=== PATIENT | female | born 1990 | race Caucasian/White ===

== ENCOUNTER 2023-04-23 18:24 | Outpatient (CLI) | payer OTHER, SELFPAY | END 2023-04-23 18:25 | disposition home or self-care (01) | PROVIDERS: Visit Provider Registered Nurse | DX: Z34.91 Encounter for supervision of normal pregnancy, unspecified, first trimester (principal); Z3A.11 11 weeks gestation of pregnancy | CPT/HCPCS: 82040; 82306; 82310; 82607; 83540; 83970; 84155; 84443; 84446; 84590; 84597; 86704; 86706; 86762; 86787; 86803; 86850; 86900; 86901; 87086; 87340 ==

== ENCOUNTER 2023-06-10 19:00 | Outpatient (CLI) | payer OTHER, MEDICAID, SELFPAY ==
[2023-06-10 19:11] VITALS: BP 113/67; PULSE 81
[2023-06-10 19:13] VITALS: TEMP 37.2; O2SAT 99
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
== END 2023-06-10 20:12 | disposition home or self-care (01) ==
LOC: OB OUT 19:00 → OB 19:00
PROVIDERS: Visit Provider Obstetrics & Gynecology
DX: O26.852 Spotting complicating pregnancy, second trimester (principal); Z3A.18 18 weeks gestation of pregnancy
CPT/HCPCS: 76815; G0463

== ENCOUNTER 2023-07-15 14:49 | Outpatient (CLI) | payer OTHER, MEDICAID, SELFPAY | END 2023-07-15 14:50 | disposition home or self-care (01) | PROVIDERS: Visit Provider Obstetrics & Gynecology | DX: O09.292 Supervision of pregnancy with other poor reproductive or obstetric history, second trimester (principal); Z3A.27 27 weeks gestation of pregnancy; Z98.84 Bariatric surgery status | CPT/HCPCS: 82306; 82310; 82607; 82728; 82746; 83540; 84425 ==

== ENCOUNTER 2023-07-30 17:33 | Outpatient (CLI) | payer OTHER, MEDICAID, SELFPAY | END 2023-07-30 17:34 | disposition home or self-care (01) | LOC: NFLDREF 17:34 | PROVIDERS: Visit Provider Physician Assistant | DX: O09.892 Supervision of other high risk pregnancies, second trimester (principal); Z3A.25 25 weeks gestation of pregnancy | CPT/HCPCS: 82947 ==

== ENCOUNTER 2023-08-22 16:02 | Outpatient (CLI) | payer OTHER, BC, SELFPAY ==
--- NOTE | 2023-08-22 16:00 | US_ITS ---
Patient: CORINNE MONAHAN Facility:?[facility] Patient ID:?[id number] Site Patient ID:?[id number]. Site :?1990 Study:?US-OB Pelvis OB F/U GROWTH-08/22/2023 4:44:52 PM Ordering Physician:?MIRI CEBALLOS CNP Final Report: INDICATION: Check growth TECHNIQUE: Limited transabdominal two-dimensional ramirez-scale ultrasound examination. COMPARISON: None FINDINGS: There is a living fetus in breech lie with gestational age of 29 weeks by LMP and 28 weeks 4 days by today`s measurements EDC based on LMP is 11/07/2023. BPD: 7.1 cm, 28 weeks 3 days Head circumference: 27.0 cm, 29 weeks 3 days Abdominal circumference: 24.3 cm, 28 weeks 4 days Femur length: 5.2 cm, 27 weeks 5 days The weight is estimated at 1209 grams, the 17th percentile. The heart rate is measured at 144 beats per minute and the rhythm appears regular. The amniotic fluid volume is within normal limits with single deepest pocket of 6.5 cm. The placenta is anterior and superior to the cervical os. There is no evidence of previa. IMPRESSION: 1. Living fetus in breech lie with gestational age of 29 weeks by LMP at 28 weeks 4 days by today`s measurements. EDC based on LMP is 11/07/2023. 2. weight estimated at 1209 grams, the 17th percentile. Dictated by Jose Luis Esteves MD @ 08/23/2023 2:13:25 PM Signed by:?Jose Luis Esteves MD @08/23/2023 2:13:25 PM (Electronic Signature)
== END 2023-08-22 16:03 | disposition home or self-care (01) ==
PROVIDERS: Visit Provider Registered Nurse
DX: O43.113 Circumvallate placenta, third trimester (principal); Z3A.29 29 weeks gestation of pregnancy
CPT/HCPCS: 76816

== ENCOUNTER 2023-08-27 18:34 | Outpatient (CLI) | payer OTHER, BC, SELFPAY | END 2023-08-27 18:35 | disposition home or self-care (01) | LOC: NFLDREF 18:35 | PROVIDERS: Visit Provider Registered Nurse | DX: R30.0 Dysuria (principal) | CPT/HCPCS: 87086; 87186 ==

== ENCOUNTER 2023-09-07 22:16 | Emergency (ER) | payer OTHER, BC, SELFPAY ==
[2023-09-07 22:25] VITALS: BP 112/73; PULSE 99; RESP 16; TEMP 36.3; O2SAT 98; BMI 27.5
--- NOTE | 2023-09-07 22:30 | PC.NURSE ---
Pt is a G6L4 with EDC of 11/07/23.
--- NOTE | 2023-09-07 22:32 | PC.NURSE ---
Pt also mentioned she thinks she is getting a yeast infection as this is her second round of antibiotics for UTI.
--- NOTE | 2023-09-07 22:37 | ED_ITS ---
HPI - General Adult General Time Seen by Provider: 22:37 Date Seen: 09/07/23 Chief complaint: Lower Extremity Swelling Stated complaint: swelling in L Leg Time Seen by Provider: 09/07/23 22:36 Source: patient and RN notes reviewed Mode of arrival: ambulatory Limitations: no limitations History of Present Illness HPI narrative: This 33-year-old female whom is 31 2/7 weeks is coming in with complaint of left leg numbness and tingling in increased swelling tonight. She is noted bilateral lower extremity through this . Tonight she took a nap, when she woke up, she went up the steps go to the bathroom. She felt like her left leg was weaker, noted numbness and tingling below the knee into the toes. She looked down at the leg and thought it was more swollen. There is no pain in the calf, no recent travel. She was on Keflex for UTI recently. The baby is active, no contractions but is experiencing [place]. No vaginal discharge or leaking. She has had no fevers or chills. She noted on the way in that her left hand started to feel numb and tingly, she admits she was gripping the seatbelt and was feeling anxious. This is her 7 , has 4 other children reportedly. Related Data Home Medications Medication Instructions Recorded Confirmed albuterol sulfate 90 mcg/actuation 1 puff inhalation Q1H PRN 04/23/23 08/27/23 aerosol inhaler mupirocin 2 % topical ointment 1 applic topical DAILY PRN 04/23/23 08/27/23 cetirizine 10 mg tablet 10 mg PO QDAY PRN 05/21/23 08/27/23 ipratropium bromide 42 mcg (0.06 2 spray intranasal TID 05/21/23 08/27/23 %) nasal spray bupropion HCl 150 mg 24 hr tablet, 150 mg PO QAM 07/30/23 08/27/23 extended release dextroamphetamine-amphetamine 10 1 tab PO DAILY 07/30/23 08/27/23 mg tablet metoclopramide HCl 10 mg tablet 10 mg PO Q6H PRN 07/30/23 08/27/23 (Reglan) gabapentin 100 mg capsule 100 mg PO QDAY 08/27/23 08/27/23 hydroxyzine HCl 10 mg tablet 50 mg PO 08/27/23 08/27/23 hydroxyzine HCl 50 mg tablet 50 mg PO TID PRN 08/27/23 08/27/23 Previous Rx's Medication Instructions Recorded duloxetine 60 mg capsule,delayed 60 mg PO QDAY #30 caps 05/21/23 release blood sugar diagnostic (OneTouch #100 ea 05/23/23 Ultra Test strips) lancets 30 gauge (OneTouch #100 ea 05/23/23 UltraSoft 2 Lancet) Test Strips #100 ea 07/15/23 lancets #100 ea 07/15/23 Blood Glucose Meter #1 ea 07/17/23 ondansetron 4 mg disintegrating 4 mg PO Q8H PRN nausea and 07/30/23 tablet vomiting #30 tabs famotidine 20 mg tablet 20 mg PO BID #60 tabs 08/13/23 famotidine 40 mg tablet 40 mg PO BID #60 tabs 08/27/23 nitrofurantoin 100 mg PO BID #10 caps 08/27/23 monohydrate/macrocrystals 100 mg capsule (Macrobid) cephalexin 500 mg tablet 500 mg PO BID #14 tabs 08/29/23 Allergies Allergy/AdvReac Type Severity Reaction Status Date / Time NSAIDS (Non-Steroidal Allergy Severe Abdominal Verified 08/27/23 18:18 Anti-Inflamma Pain aspirin AdvReac Mild Gastrointestinal Verified 08/27/23 18:18 Upset Cephalosporins AdvReac Mild Gastrointestinal Verified 08/27/23 18:18 Upset penicillin V AdvReac Mild Gastrointestinal Verified 08/27/23 18:18 Upset Review of Systems Status of ROS: Reports: 6 or more systems reviewed and unremarkable except as noted in History and below [facility] Medical History Vaginal delivery ?O80 - Encounter for full-term uncomplicated delivery (ICD-10) Precipitous delivery ?O62.3 - Precipitate labor (ICD-10) Alcohol use ?Z78.9 - Other specified health status (ICD-10) Retinal detachment ?H33.20 - Serous retinal detachment, unspecified eye (ICD-10) Hypokalemia ?E87.6 - Hypokalemia (ICD-10) labor without delivery ?O60.00 - labor without delivery, unspecified trimester (ICD-10) Family history of congenital heart defect ?Z82.79 - Family history of other congenital malformations, deformations and chromosomal abnormalities (ICD-10) Obesity ?E66.9 - Obesity, unspecified (ICD-10) History of abnormal cervical Pap smear ?Z87.42 - Personal history of other diseases of the female genital tract (ICD-10) History of gastric ulcer ?Z87.11 - Personal history of peptic ulcer disease (ICD-10) Surgical History H/O hernia repair ?Z98.890 - Other specified postprocedural states (ICD-10) ?Z87.19 - Personal history of other diseases of the digestive system (ICD-10) History of gastric bypass ?Z98.84 - Bariatric surgery status (ICD-10) History of loop electrical excision procedure (LEEP) ?Z98.890 - Other specified postprocedural states (ICD-10) History of cholecystectomy (2013) ?Z90.49 - Acquired absence of other specified parts of digestive tract (ICD- 10) History of retinal detachment ?Z86.69 - Personal history of other diseases of the nervous system and sense organs (ICD-10) Family History Maternal Grandfather Coagulation disorder Son Heart disease Other Diabetes High blood pressure High cholesterol Social History What is your current living situation?: I presently have a place to live Problems where you live: no known problems In the past 12 months, utilities in danger of being shut off: no In past 12 months, lack of transportation kept you from medical appts, meetings, work, or getting things needed for daily living: no In the past 12 mos, have been you worried that your food would run out before you had money to buy more?: never true In the past 12 mos, the food you bought just didn't last and you didn't have mo brittney to buy more?: never true Smoking Status: Current every day smoker What tobacco products do you use: cigarettes Do you use any of these nicotine containing products: None Second hand tobacco smoke exposure: No How often do you have a drink containing alcohol: never How often do you have six or more drinks on one occasion: Never AUDIT-C Alcohol total score: 0 Non-prescribed substance use: denies use How often does anyone, including family, friends and others, physically hurt you : never How often does anyone, including family, friends and others, insult or talk down to you: never How often does anyone, including family, friends and others, threaten you with harm: never How often does anyone, including family, friends and others, scream or curse at you: never Little interest or pleasure in doing things: more than half the days Feeling down, depressed, or hopeless: more than half the days service: No Exam Const: Vital Signs, click to edit/add: Vital Signs - 24 hr 09/07/23 22:25 09/07/23 23:34 Temperature 97.3 F L 98.0 F Pulse Rate [Pulse Oximeter] 99 70 Respiratory Rate 16 16 Blood Pressure [Le ft Upper Arm] 112/73 114/72 Pulse Oximetry 98 98 Oxygen Delivery Me thod Room Air Room Air Patient is alert, interactive, no apparent distress. I did see patient ambulating back into her exam room, gait was normal. Uterus is gravid. Pupils equal round reactive, sclera clear, symmetrical facial function. Speech is norm al. Neck supple, no adenopathy or masses. Lungs are clear, good air entry, CV regular rate and rhythm no murmur. She has some bilateral lower extremity edema, no erythema, no calf tenderness. She seems to have normal light touch sensation currently right now. Initially when asked her to lift her leg off the bed she seemed to have a bit of a difficult time but when prompted and encouraged her strength is 5/5 and symmetric in the lower extremities. Normal light touch say soto in hands, normal motor function in upper extremities. Documenting provider has reviewed patient's vital signs: yes Course Course ED Course: Will obtain a venous ultrasound given patient is in certainly is at risk. It is possible that this was just positional was sleeping. Will briefly talk to neuro just to make sure that I am proceeding appropriately for this patient. Feel it is likely positional changes from sleeping and potentially anxiety with involvement of the hand. She ambulated in here completely fine tonight. Reevaluation(s) Time of Reevaluation #1: 00:03 Reevaluation #1: Patient informed that the preliminary report per cnc technician is negative for DVT. Will allow her to discharge. Consultations Consultation #1: Did speak with Neurology Dr. Rice. He felt her leg may have been more of a positional neuropathy from sleeping. He did state he really could not explain the hand but patient did admit that she was gripping the seatbelt on the way in, was anxious and nervous. We will do is have her monitor this. He does not feel any neuro imaging is necessary. Will proceed with her venous ultrasound for her left lower extremity. Time: 22:54 Vital Signs Vital signs: Initial Vital Signs Temperature 97.3 F L 09/07/23 22:25 Temperature Source Temporal Artery Scan 09/07/23 22:25 Pulse Rate 99 09/07/23 22:25 Pulse Rhythm Regular 09/07/23 22:25 Respiratory Rate 16 09/07/23 22:25 Blood Pressure 112/73 09/07/23 22:25 Blood Pressure Mean 86 09/07/23 22:25 Blood Pressure Position Sitting 09/07/23 22:25 Pulse Oximetry 98 09/07/23 22:25 Oxygen Delivery Method Room Air 09/07/23 22:25 Vital Signs Temperature 97.3 F L 09/07/23 22:25 Pulse Rate 99 09/07/23 22:25 Respiratory Rate 16 09/07/23 22:25 Blood Pressure 112/73 09/07/23 22:25 Pulse Oximetry 98 09/07/23 22:25 Oxygen Delivery Method Room Air 09/07/23 22:25 Temperature 98.0 F 09/07/23 23:34 Pulse Rate 70 09/07/23 23:34 Respiratory Rate 16 09/07/23 23:34 Blood Pressure 114/72 09/07/23 23:34 Pulse Oximetry 98 09/07/23 23:34 Oxygen Delivery Method Room Air 09/07/23 23:34 Discharge Plan Discharge Clinical Impression: Left leg swelling Qualifiers: Weeks of gestation: 31 weeks Qualified Code(s): Z3A.31 - 31 weeks gestation of Patient Disposition: Home, Self-Care Condition: Stable Instructions: at 31 to 34 Weeks (ED) Additional Instructions: Please follow-up in OB clinic this next week for recheck. Try to elevate your legs heart level or above it as much as possible, certainly when you are resting. This can help decrease some of the swelling. Talk to your hydro station operator about compression stockings such as Russell hose. Activity Level: Activity as Tolerated Prescriptions: No Action albuterol sulfate 90 mcg/actuation HFA aerosol inhaler 1 puff inhalation Q1H PRN Hold Instructions: Patient states she has not taken in years mupirocin 2 % ointment 1 applic topical DAILY PRN cetirizine 10 mg tablet 10 mg PO QDAY PRN Hold Instructions: Patient states she is no longer using this ipratropium bromide 42 mcg (0.06 %) spray,non-aerosol 2 spray intranasal TID Hold Instructions: Patient states she is no longer taking Rx Instructions: administer into each nostril duloxetine 60 mg capsule,delayed release(DR/EC) 60 mg PO QDAY Qty: 30 1RF (DME) lancets Misc See Rx Instructions .MEDSUPPLY Qty: 100 3RF Rx Instructions: Test blood sugar 4 times daily. (DME) Test Strips Misc See Rx Instructions .MEDSUPPLY Qty: 100 3RF Rx Instructions: Test blood sugar 4 times daily. dextroamphetamine-amphetamine 10 mg tablet 1 tab PO DAILY Patient Comments: And Daily PRN bupropion HCl 150 mg tablet extended release 24 hr 150 mg PO QAM metoclopramide HCl [Reglan] 10 mg tablet 10 mg PO Q6H PRN ondansetron 4 mg tablet,disintegrating 4 mg PO Q8H PRN (Reason: nausea and vomiting) Qty: 30 0RF hydroxyzine HCl 10 mg tablet 50 mg PO gabapentin 100 mg capsule 100 mg PO QDAY hydroxyzine HCl 50 mg tablet 50 mg PO TID PRN Patient Comments: May take 1-2 tablets TID PRN famotidine 40 mg tablet 40 mg PO BID Qty: 60 0RF nitrofurantoin monohyd/m-cryst [Macrobid] 100 mg capsule 100 mg PO BID Qty: 10 0RF Rx Instructions: must administer with a meal/food famotidine 20 mg tablet 20 mg PO BID Qty: 60 2RF (DME) Blood Glucose Meter Misc See Rx Instructions .Route Qty: 1 0RF Rx Instructions: As directed, take blood glucose four times daily (DME) OneTouch Ultra Test Strip See Rx Instructions .Route Qty: 100 0RF Rx Instructions: As directed (DME) lancets [OneTouch UltraSoft 2 Lancet] 30 gauge misc See Rx Instructions .Route Qty: 100 0RF Rx Instructions: As directed cephalexin 500 mg tablet 500 mg PO BID Qty: 14 0RF Follow Up/Referrals: Provider,Not a Local [Primary Care Provider] - Stand Alone Forms: MyHealth Info Instructions
--- NOTE | 2023-09-07 22:40 | US_ITS ---
Patient: CORINNE MONAHAN Facility:?[facility] Patient ID:?[id number] :?1990 Study:?US-Extremity Left lower leg venous-09/08/2023 12:06:45 AM Ordering Physician:gal Final Report: INDICATION: Leg pain and swelling, tingling. TECHNIQUE: Ultrasound venous duplex lower left extremity. Compression venous exam was performed using ramirez-scale, color Doppler, and spectral Doppler imaging. COMPARISON: None. FINDINGS: Left lower extremity: Common femoral vein: Patent and compressible. Greater saphenous vein: Patent. Deep femoral vein: Patent. Femoral vein: Patent and compressible. Popliteal vein: Patent and compressible. Posterior tibial vein: Patent and compressible. Peroneal vein: Patent and compressible. Contralateral right common femoral vein: Patent and compressible. IMPRESSION: No evidence of acute deep venous thrombosis in the left lower extremity. Dictated by Princess Chapa MD @ 09/08/2023 12:29:27 AM Signed by:?Princess Chapa MD @09/08/2023 12:29:27 AM (Electronic Signature)
[2023-09-07 23:34] VITALS: BP 114/72; PULSE 70; RESP 16; TEMP 36.7; O2SAT 98
--- NOTE | 2023-09-07 23:34 | PC.NURSE ---
OB here for evaluation, ultrasound also here. Will be doing ultrasound at bedside.
--- NOTE | 2023-09-08 04:44 | PC.OBNST ---
NST Note NST Note Start: 09/08/23 04:42 Freq: ONCE Status: Active Protocol: Document 09/08/23 04:42 WILLARD (Rec: 09/08/23 04:44 WILLARD [id number]) NST Note 6 Para (# of births) 4 EDC 11/07/23 Gestational Age In Weeks & Days 31 Weeks & 3 Days High Risk Factors History of Labor/ Delivery Patient Presented with Complaint(s) of Other Other Complaints Patient presented to ER for LLE swelling and DVT rule out. Reported savannah yee contractions that got more frequent and intense as her ER visit progressed. Dr. Cortez contacted for labor rule out. Reactive Yes Appropriate for Gestational Age Yes RN Scar Andresw RN Date 09/08/23 Reactive Yes Appropriate for Gestational Age Yes RN Dr. Cortez OBGYN Date 09/08/23 OB NST charge No Complete NST Note via Write Note Yes The provider's electronic signature indicates the NST is reactive/appropriate for gestational age. *Note to provider: If an addendum is required, open the patient's chart and click on the note under the Nurse/Allied Health tab.
== END 2023-09-08 00:16 | disposition home or self-care (01) ==
PROVIDERS: Emergency Provider Family Medicine
DX: R22.42 Localized swelling, mass and lump, left lower limb (principal); Z3A.31 31 weeks gestation of pregnancy
CPT/HCPCS: 93971; 99283; 99284

== ENCOUNTER 2023-09-13 14:50 | Outpatient (CLI) | payer OTHER, BC, SELFPAY | END 2023-09-13 14:51 | disposition home or self-care (01) | LOC: NFLDREF 14:51 | PROVIDERS: Visit Provider Obstetrics & Gynecology | DX: Z34.93 Encounter for supervision of normal pregnancy, unspecified, third trimester (principal); Z3A.32 32 weeks gestation of pregnancy | CPT/HCPCS: 86592; 87086 ==

== ENCOUNTER 2023-09-16 14:20 | Outpatient (RCR) | payer OTHER, BC, SELFPAY ==
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
== END 2023-11-25 13:21 | disposition home or self-care (01) ==
PROVIDERS: Visit Provider Obstetrics & Gynecology
DX: M54.30 Sciatica, unspecified side (principal); O09.90 Supervision of high risk pregnancy, unspecified, unspecified trimester; M53.3 Sacrococcygeal disorders, not elsewhere classified; R10.2 Pelvic and perineal pain; G89.29 Other chronic pain; Z51.89 Encounter for other specified aftercare
CPT/HCPCS: 97110; 97140; 97162

== ENCOUNTER 2023-09-26 09:47 | Outpatient (CLI) | payer OTHER, BC, SELFPAY ==
--- NOTE | 2023-09-26 09:45 | CRLHL7_ITS ---
For Patients: As a result of the Century Cures Act, medical imaging exams and procedure reports are released immediately into your electronic medical record. You may view this report before your referring provider. If you have questions, please contact your health care provider. INDICATION: Third trimester scan, evaluate growth. Circumvallate placenta. COMPARISON: 08/22/2023 TECHNIQUE: Real time ramirez scale imaging of the fetus was performed as well as color Doppler and spectral Doppler analysis of the umbilical artery. FINDINGS: Sonographic imaging demonstrates a single living intrauterine gestation. Fetus demonstrates a regular cardiac rate of 147 beats per minute. Fetus has a vertex position. The placenta lies anteriorly. Amniotic fluid volume appears normal and there is a single deepest vertical pocket: 5.4 cm. The estimated weight is 2074gm which lies at the 16th %. On the prior OB ultrasound exam dated 08/22/2023 the estimated weight was at the 17th%. BPD 26th percentile. HC is 17th percentile. AC is 35th percentile. FL less than 3rd percentile. The HC/AC ratio measures 1.04 range (0.96-1.11). IMPRESSION: Sonographic gestational age 33 weeks 1 day and sonographic due date 11/13/2023. Sonographic age 6 days behind the clinical age. Estimated weight is 16th percentile. Abdominal circumference 35th percentile. FL less than 3rd percentile. Dictated by Andrez Lerma MD @ 09/26/2023 10:56:49 AM (Electronically Signed)
== END 2023-09-26 09:48 | disposition home or self-care (01) ==
LOC: US 09:47
PROVIDERS: Visit Provider Obstetrics & Gynecology
DX: O43.113 Circumvallate placenta, third trimester (principal); Z3A.33 33 weeks gestation of pregnancy
CPT/HCPCS: 76816

== ENCOUNTER 2023-10-02 09:58 | Outpatient (CLI) | payer OTHER, BC, SELFPAY ==
[2023-10-03 11:14] LABS: Strep B DNA Probe POSITIVE (Negative)
[2023-10-03 11:40] LABS: Strep B Susceptibility Needed? Yes
== END 2023-10-02 09:59 | disposition home or self-care (01) ==
LOC: NFLDREF 09:58
PROVIDERS: Visit Provider Obstetrics & Gynecology
DX: Z34.83 Encounter for supervision of other normal pregnancy, third trimester (principal)
CPT/HCPCS: 82728; 87081; 87186; 87653

== ENCOUNTER 2023-10-14 10:09 | Outpatient (CLI) | payer OTHER, BC, SELFPAY ==
[2023-10-14 10:16] VITALS: BP 122/72; PULSE 93; TEMP 36.6
--- NOTE | 2023-10-24 12:51 | PC.OBNST ---
NST Note NST Note Start: 10/14/23 10:00 Freq: ONCE Status: Active Protocol: Document 10/14/23 12:48 WK (Rec: 10/24/23 12:51 WK Desktop) NST Note 6 Para (# of births) 5 EDC 11/07/23 Gestational Age In Weeks & Days 38 Weeks & 0 Days Patient Presented with Complaint(s) of Contractions/cramping Other Complaints Actual gestation is 36 4/7. Documentation completed at a later date. Reactive Yes RN Wilman RNC Date 10/14/23 Reactive Yes RN Shea RN Date 10/14/23 OB NST charge Yes Complete NST Note via Write Note Yes The provider's electronic signature indicates the NST is reactive/appropriate for gestational age. *Note to provider: If an addendum is required, open the patient's chart and click on the note under the Nurse/Allied Health tab.
== END 2023-10-14 13:05 | disposition home or self-care (01) ==
LOC: OB OUT 10:11 → OB 10:11
PROVIDERS: Visit Provider Obstetrics & Gynecology
DX: O47.1 False labor at or after 37 completed weeks of gestation (principal); Z3A.37 37 weeks gestation of pregnancy
CPT/HCPCS: 59025; G0463

== ENCOUNTER 2023-10-17 10:30 | Outpatient (RCR) | payer OTHER, BC, SELFPAY ==
--- NOTE | 2023-10-04 10:52 | PC.NURSE ---
Diagnosis: Iron Deficiency Anemia
--- NOTE | 2023-10-04 11:51 | URNOTE ---
?Request received for authorization for Iron Sucrose (Venofer) ([id number]). Prior authorization is not required per [facility] Ref#[id number], date range: 10/03/23 to 12/27/23.
--- NOTE | 2023-10-04 13:18 | URNOTE ---
?Request received for authorization for Iron Sucrose (Venofer) ([id number]). Prior authorization is not required per [facility] Ref#[id number] as primary and [facility] no ARLYN ibarra. Ref#[id number], date range: 10/03/23 to 12/27/23.
[2023-10-07 13:44] VITALS: BP 106/70; PULSE 89; RESP 16; TEMP 36.4; O2SAT 100
[2023-10-07] MEDS: IRON SUCROSE COMPLEX 200 MG in 0.9 % SODIUM CHLORIDE 100 ml 100 ML 440 MG IVPB (14:10)
[2023-10-07] MEDS: SODIUM CHLORIDE 0.9 % (FLUSH) 10 ML SYRINGE IVF (14:13)
[2023-10-07] MEDS: 0.9 % SODIUM CHLORIDE 250 ml IV (14:13)
[2023-10-07 14:30] VITALS: BP 104/68; PULSE 95; RESP 16; TEMP 37.1; O2SAT 96
[2023-10-07 15:07] VITALS: BP 107/66; PULSE 92; RESP 18; TEMP 37.1; O2SAT 96
[2023-10-09 13:30] VITALS: BP 102/69; PULSE 93; RESP 18; TEMP 36; O2SAT 99
[2023-10-09] MEDS: SODIUM CHLORIDE 0.9 % (FLUSH) 10 ML SYRINGE IVF (13:50)
[2023-10-09] MEDS: 0.9 % SODIUM CHLORIDE 250 ml IV (13:51)
[2023-10-09] MEDS: IRON SUCROSE COMPLEX 200 MG in 0.9 % SODIUM CHLORIDE 100 ml 100 ML 440 MG IVPB (14:02)
[2023-10-09 14:21] VITALS: BP 115/73; PULSE 92; RESP 14; TEMP 36.8; O2SAT 96
[2023-10-09 14:56] VITALS: BP 108/73; PULSE 89; RESP 14; TEMP 36.3; O2SAT 97
[2023-10-11 11:33] VITALS: BP 107/75; PULSE 92; RESP 16; TEMP 36.9; O2SAT 100
[2023-10-11] MEDS: 0.9 % SODIUM CHLORIDE 250 ml IV (11:50)
[2023-10-11] MEDS: SODIUM CHLORIDE 0.9 % (FLUSH) 10 ML SYRINGE IVF (11:50)
[2023-10-11] MEDS: IRON SUCROSE COMPLEX 200 MG in 0.9 % SODIUM CHLORIDE 100 ml 100 ML 440 MG IVPB (11:51)
[2023-10-11 12:41] VITALS: BP 105/71; PULSE 86; RESP 16; TEMP 36.7; O2SAT 98
--- NOTE | 2023-10-14 14:01 | ONC.NURNOTE ---
Patient called stating she is peggy and was released from OB but did not feel well enough to come today. Rescheduled for tomorrow at 1300.
[2023-10-15 13:21] VITALS: BP 101/64; PULSE 90; RESP 18; TEMP 36.7; O2SAT 99
[2023-10-15] MEDS: IRON SUCROSE COMPLEX 200 MG in 0.9 % SODIUM CHLORIDE 100 ml 100 ML 440 MG IVPB (13:35)
[2023-10-15] MEDS: 0.9 % SODIUM CHLORIDE 250 ml IV (13:35)
[2023-10-15] MEDS: SODIUM CHLORIDE 0.9 % (FLUSH) 10 ML SYRINGE IVF (13:36)
[2023-10-15 13:54] VITALS: BP 110/72; PULSE 89; RESP 16; TEMP 36.7; O2SAT 98
[2023-10-15 14:44] VITALS: BP 101/65; PULSE 73; RESP 16; TEMP 36.6; O2SAT 100
[2023-10-17 11:12] VITALS: BP 108/71; PULSE 88; RESP 16; TEMP 36.8; O2SAT 98
[2023-10-17] MEDS: IRON SUCROSE COMPLEX 200 MG in 0.9 % SODIUM CHLORIDE 100 ml 100 ML 440 MG IVPB (11:18)
[2023-10-17] MEDS: SODIUM CHLORIDE 0.9 % (FLUSH) 10 ML SYRINGE IVF (11:19)
[2023-10-17] MEDS: 0.9 % SODIUM CHLORIDE 250 ml IV (11:19)
[2023-10-17 11:54] VITALS: BP 112/71; PULSE 85; RESP 14; TEMP 36.3; O2SAT 98
[2023-10-17 12:24] VITALS: BP 111/71; PULSE 91; RESP 16; O2SAT 98
== END 2024-04-04 23:59 | disposition home or self-care (01) ==
LOC: CCIC 10:30
PROVIDERS: Visit Provider Clinical Nurse Specialist
DX: D50.9 Iron deficiency anemia, unspecified (principal)
CPT/HCPCS: 96374; J1756; J7050

== ENCOUNTER 2023-10-23 16:51 | Inpatient (IN) | payer OTHER, BC, SELFPAY ==
[2023-10-23] VITALS (38 sets, daily range): BP systolic 98–125; BP diastolic 54–75; PULSE 75–114; RESP 14–18; TEMP 36.6–37.1; O2SAT 94–100
[2023-10-23 17:12] LABS: Basophils Percent Auto 0.2 % (0.0-3.0); Eosinophils Percent Auto 1.6 % (0.0-7.0); Hematocrit 29.8 % (33.0-51.0); Hemoglobin* 9.5 gm/dL (12.0-16.0); Lymphocytes Percent Auto 20.9 % (20-44); Mean Corpuscular HGB Conc 32 gm/dL (32-36); Mean Corpuscular Hemoglobin 29 pg (26-34); Mean Corpuscular Volume 92 fL (80-100); Monocytes Percent Auto 4.3 % (0.0-11.0); Platelet Count* 237 K/uL (140-440); RDW Coefficient of Variation % 16.8 % (11.5-15.5); Red Blood Count 3.24 m/uL (4.00-5.20); White Blood Count* 11.23 K/uL (4.50-11.00)
[2023-10-23 17:13] LABS: Slide Review Reflex No
[2023-10-23] MEDS: LACTATED RINGERS 1000 ML 1,000 ML 125 ML IV (17:40)
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
--- NOTE | 2023-10-23 18:20 | PC.NURSE ---
RN spoke with Dr. Roque about patient's use of medical marijuana throughout , well documented. Per provider, okay to not send urine tox. Patient updated.
[2023-10-23] MEDS: LIDOCAINE 2% (PF) 5 ML VIAL EPIDURAL ×2 (20:16→23:47)
[2023-10-23] MEDS: ROPIVACAINE 0.2% 100 ml 100 ML 12 MG EPIDURAL (20:16)
--- NOTE | 2023-10-23 20:22 | P.ANBPRC_ITS ---
[facility] Medical History (Updated 10/17/23 @ 16:21 by Poonam Christensen MD) Cystitis ?N30.90 - Cystitis, unspecified without hematuria (ICD-10) Vaginal delivery ?O80 - Encounter for full-term uncomplicated delivery (ICD-10) Precipitous delivery ?O62.3 - Precipitate labor (ICD-10) Alcohol use ?Z78.9 - Other specified health status (ICD-10) Retinal detachment ?H33.20 - Serous retinal detachment, unspecified eye (ICD-10) Hypokalemia ?E87.6 - Hypokalemia (ICD-10) labor without delivery ?O60.00 - labor without delivery, unspecified trimester (ICD-10) Family history of congenital heart defect ?Z82.79 - Family history of other congenital malformations, deformations and chromosomal abnormalities (ICD-10) Obesity ?E66.9 - Obesity, unspecified (ICD-10) History of abnormal cervical Pap smear ?Z87.42 - Personal history of other diseases of the female genital tract (ICD-10) History of gastric ulcer ?Z87.11 - Personal history of peptic ulcer disease (ICD-10) Surgical History H/O hernia repair ?Z98.890 - Other specified postprocedural states (ICD-10) ?Z87.19 - Personal history of other diseases of the digestive system (ICD-10) History of gastric bypass ?Z98.84 - Bariatric surgery status (ICD-10) History of loop electrical excision procedure (LEEP) ?Z98.890 - Other specified postprocedural states (ICD-10) History of cholecystectomy (2013) ?Z90.49 - Acquired absence of other specified parts of digestive tract (ICD- 10) History of retinal detachment ?Z86.69 - Personal history of other diseases of the nervous system and sense organs (ICD-10) Family History Maternal Grandfather Coagulation disorder Son Heart disease Other Diabetes High blood pressure High cholesterol Social History What is your current living situation?: I presently have a place to live Problems where you live: no known problems In the past 12 months, utilities in danger of being shut off: no In past 12 months, lack of transportation kept you from medical appts, meetings, work, or getting things needed for daily living: no In the past 12 mos, have been you worried that your food would run out before you had money to buy more?: never true In the past 12 mos, the food you bought just didn't last and you didn't have money to buy more?: never true Smoking Status: Current every day smoker What tobacco products do you use: cigarettes Do you use any of these nicotine containing products: None Second hand tobacco smoke exposure: No How often do you have a drink containing alcohol: never How often do you have six or more drinks on one occasion: Never AUDIT-C Alcohol total score: 0 Non-prescribed substance use: denies use How often does anyone, including family, friends and others, physically hurt you : never How often does anyone, including family, friends and others, insult or talk down to you: never How often does anyone, including family, friends and others, threaten you with harm: never How often does anyone, including family, friends and others, scream or curse at you: never Little interest or pleasure in doing things: several days Feeling down, depressed, or hopeless: several days service: No Meds Home Medications and Allergies Home Medications ?Medication ?Instructions ?Recorded ?Confirmed ?Type albuterol sulfate 90 mcg/actuation 1 puff inhalation Q1H PRN 04/23/23 10/23/23 History aerosol inhaler cetirizine 10 mg tablet 10 mg PO QDAY PRN 05/21/23 10/23/23 History bupropion HCl 150 mg 24 hr tablet, 150 mg PO QAM 07/30/23 10/23/23 History extended release gabapentin 100 mg capsule 100 mg PO QDAY 08/27/23 10/23/23 History hydroxyzine HCl 50 mg tablet 50 mg PO TID PRN 08/27/23 10/23/23 History Allergies Allergy/AdvReac Type Severity Reaction Status Date / Time NSAIDS (Non-Steroidal Allergy Severe Abdominal Verified 10/17/23 10:25 Anti-Inflamma Pain aspirin AdvReac Mild Gastrointestinal Verified 10/17/23 10:25 Upset Cephalosporins AdvReac Mild Gastrointestinal Verified 10/17/23 10:25 Upset penicillin V AdvReac Mild Gastrointestinal Verified 10/17/23 10:25 Upset Results Labs Labs: Laboratory Results - last 24 hr 10/23/23 17:01 WBC 11.23 H RBC 3.24 L Hgb 9.5 L Hct 29.8 L MCV 92 MCH 29 MCHC 32 RDW Coeff of Milana 16.8 H Plt Count 237 Neut % (Auto) 71.0 Lymph % (Auto) 20.9 Pierce % (Auto) 4.3 Eos % (Auto) 1.6 Baso % (Auto) 0.2 Neut # (Auto) 8.00 H Lymph # (Auto) 2.30 Pierce # (Auto) 0.50 Eos # (Auto) 0.20 Baso # (Auto) 0.00 Abs Immat Gran (auto) 0.20 Imm/Tot Granulo (auto) 2.0 Blood Type O Positive Antibody Screen NEGATIVE Vital Signs Vital Signs: Last Vital Signs Temp 98.7 F 10/23/23 19:24 Pulse 88 10/23/23 20:17 Resp 18 10/23/23 19:24 BP 114/65 10/23/23 20:17 Pulse Ox 98 10/23/23 20:21 Weight: 80.739 kg Anesthesia Procedures Epidural Insertion Patient Location: OB Start Time: 19:50 Stop Time: 20:30 Start Date: 10/23/23 Stop Date: 10/23/23 Reason for Block: primary anesthetic Patient Position: sitting Performed By: Zackery Copeland Preanesthetic Checklist: IV checked, risks and benefits discussed, surgical consent, monitors and equipment checked, pre-op evaluation, timeout performed and anesthesia consent Prep: chlorhexidine gluconate Monitoring: blood pressure monitoring, cardiac monitor technician, continuous pulse oximetry and heart rate Approach: midline Vertebral Space: lumbar (1-5) Needle Type: Tuohy needle Injection Technique: continuous catheter (catheter) Needle gauge: 17 Needle Length (cm): 10 cm Needle Insertion Depth (cm): 6 Catheter Gauge: 19 Catheter Type: multi-orifice Catheter at skin depth (cm): 11 Test Dose Result: negative and lidocaine 1.5% with epinephrine 1 to 200,000
--- NOTE | 2023-10-23 21:23 | PM.OBPNL ---
Subjective Time Seen by Provider: 21:23 Date Seen: 10/23/23 Narrative: Patient finally comfortable with an epidural. Objective Vital Signs: Last Vital Signs Temp 98.7 F 10/23/23 19:24 Pulse 88 10/23/23 21:09 Resp 18 10/23/23 19:24 BP 103/68 10/23/23 21:09 Pulse Ox 97 10/23/23 20:26 Pelvic Exam Dilation (cm): 4.5 Effacement (%): 75 Station: -2 Contractions Monitor mode: External Contraction pattern: Irregular Contraction intensity: Mild Pitocin Rate (mU/min): 0 Assessment Amniotic Membrane Status: AROM (2114) Status: Category ll Heart Rate Baseline: 130 Intermediate Variability: Moderate (6-25) Monitor Accelerations: Present Monitor Decelerations: Variable (Rare variables that resolve spontaneously) Labor Progress: Unchanged from previous cervical check 4 hours ago. Will augment with AROM and titrating pitocin. Patient agrees with the plan. AROM at 2114 without complications. Thin meconium noted.
[2023-10-23] MEDS: CALCIUM CARBONATE 500 MG CHEW PO (21:50)
[2023-10-23] MEDS: OXYTOCIN 30 unit/500 ML in NS 30 UNIT/500 ML BAG IVPB (22:06)
[2023-10-24] VITALS (16 sets, daily range): BP systolic 105–135; BP diastolic 56–89; PULSE 65–105; RESP 16–18; TEMP 36.6–37.2; O2SAT 96–97
[2023-10-24] MEDS: OXYTOCIN 10 UNIT/ML INJ IM (00:25)
--- NOTE | 2023-10-24 00:41 | W.PM.VAGD1_ITS ---
Procedure Delivery date: 10/24/23 Procedure Done: Global Events: Labor Augmentation Delivery augmentation: rupture of membranes and pitocin Delivery monitor: external FHT Route of delivery: Laceration description: None Estimated blood loss (mL): 50 Anesthesia type: Epidural Disposition: floor Narrative: Mary Ellen is a 33 year-old admitted on 10/23/23 at 37 and 6/7 weeks gestation for spontaneous onset of labor. Cervical exam on admission was 5 cm/60 % effaced/-2station with membranes intact in vertex presentation. Contractions were every 3 minutes. heart rate demonstrated baseline 130s bpm with moderate variability, + accelerations, negative decelerations; a category I tracing. GBS +, received vancomycin antibiotics for prophylaxis. AROM occurred at 2115 on 10/23/23 with meconium stain fluid. Labor Analgesia: Epidural Pitocin: Yes Labor onset: 10/23/23 at 1200 pm Complete: 10/24/23 at 0018 Pushin10/24/23 at 0019 heart tones during second stage were Cat I At 0019 a viable female delivered in vertex presentation over intact per ineum via spontaneous vaginal delivery. Patient delivery precipitously while sitting up for an ITN. Cord was clamped and cut after a 30-60 second delay. Nose and mouth were bulb suctioned. Infant weight: pending. 7 at 1 minute and 9 at 5 minutes. Shoulder dystocia: No. Nuchal cord: No. Placenta delivered spontaneously and complete at 1224 with a 3 vessel cord. Complications: Precipitous delivery Mother and were stable after delivery. Laceration(s): None. Estimated blood loss: 50 mL. Sponge and needles counts are correct. Mother and infant were stable at the time of this note. Gender: Female presentation: vertex Placental Delivery Description: Spontaneous Cord Description: 3 Vessels
[2023-10-24] MEDS: ACETAMINOPHEN 500 MG TABLET 1000 MG PO ×4 (00:42→19:14)
[2023-10-24] MEDS: OXYCODONE 5 MG TABLET PO ×4 (04:21→23:01)
--- NOTE | 2023-10-24 08:02 | PM.OBPNVD1 ---
OB - PN:Subj Subjective Date Seen: 10/24/23 Narrative: Mary Ellen is a 33 y.o. who was admitted to [facility] for labor.? She had an uncomplicated NVD.? ?? The patient feels well.? The pain is well controlled with current medications.? She has no new complaints.? She is breast feeding and reports things are going well.? the patient has done well.? Vitals have been stable.? She has remained afebrile.? Has a good appetite, is tolerating a general diet.? She is voiding without difficulty.? She is passing gas and has not had a bowel movement.? She is ambulating and denies any dizziness.? Has Small amount of rubra lochia.? OB - PN: Obj Exam Physical Exam: Vital signs: Temp Pulse Resp BP Pulse Ox 98.0 F 65 18 111/70 97 10/24/23 00:40 10/24/23 02:10 10/24/23 02:10 10/24/23 02:10 10/23/23 20:26 Narrative: GENERAL APPEARANCE:? normal affect, alert, no distress? MOOD:? appropriate? HEENT: normocephalic, neck supple, full ROM? CHEST:? Symmetrical chest wall movement.? Normal respiratory effort.? Clear to auscultation ? HEART:? regular rate and rhythm? ABDOMEN:? soft, non-tender. Uterine fundus is firm, at Umbilicus, Midline and is appropriate for the stage of recovery.? Bowel sounds present.? PERINEUM:? mild edema of the perineum, intact EXTREMITIES:? normal and no edema? OB - PN: Obj Data Labs Labs: Laboratory Results - last 24 hr 10/23/23 17:01 WBC 11.23 H RBC 3.24 L Hgb 9.5 L Hct 29.8 L MCV 92 MCH 29 MCHC 32 RDW Coeff of Milana 16.8 H Plt Count 237 Neut % (Auto) 71.0 Lymph % (Auto) 20.9 [place] % (Auto) 4.3 Eos % (Auto) 1.6 Baso % (Auto) 0.2 Neut # (Auto) 8.00 H Lymph # (Auto) 2.30 [place] # (Auto) 0.50 Eos # (Auto) 0.20 Baso # (Auto) 0.00 Abs Immat Gran (auto) 0.20 Imm/Tot Granulo (auto) 2.0 Blood Type O Positive Antibody Screen NEGATIVE OB - PN: A/P Delivery Assessment and Plan (1) Anemia complicating : Status: Acute (2) Circumvallate placenta: Problem details: suspected Status: Acute (3) UTI in : Status: Acute (4) Sciatica: Status: Acute (5) : Status: Acute (6) labor without delivery: Problem details: Patient reported labor with 2., 3, and 4. States she was on bed rest at 33 weeks with baby 4. Awaiting records from [address] Status: Acute (7) Cannabis use disorder: Status: Acute (8) PTSD (post-traumatic stress disorder): Status: Acute (9) Adjustment disorder with mixed anxiety and depressed mood: Status: Acute (10) Tobacco dependence: Status: Acute (11) History of Germaine-en-Y gastric bypass: Problem details: 2020 Status: Acute (12) Family history of congenital heart defect: Status: Acute (13) Nausea/vomiting in : Status: Acute (14) ADHD: Status: Acute (15) care and examination immediately after delivery: Status: Acute (16) Lactating mother: Status: Acute Plan day: 1 Plan: routine care Comments: G 6 P 5 status post uncomplicated NVD??? 1.? Continue route PP cares? 2.? .? May see if desired? 3.? Anticipate discharge home tomorrow?
[2023-10-24] MEDS: FERROUS SULFATE 325 MG TABLET PO (09:11)
[2023-10-24] MEDS: DULOXETINE 30 MG CAPSULE DR 60 MG PO (09:11)
[2023-10-24] MEDS: buPROPion XL 150 MG TABLET PO ×2 (09:12)
[2023-10-24] MEDS: DOCUSATE SODIUM 100 MG CAPSULE PO (09:12)
[2023-10-24] MEDS: GABAPENTIN 100 MG CAPSULE PO (09:12)
--- NOTE | 2023-10-24 11:09 | PM.ANPOST ---
Post Anesthesia Note Post Anesthesia Note Patient seen: Inpatient Respiratory Status: adequate Cardiovascular Status: adequate Mental Status: baseline Pain: adequate Temp: baseline Anesthetic awareness: N/A Complications: none Follow care: none
[2023-10-24] MEDS: LANOLIN CREAM 1 APPLIC TOPICAL (23:01)
[2023-10-25] MEDS: ACETAMINOPHEN 500 MG TABLET 1000 MG PO ×2 (01:54→10:51)
[2023-10-25 01:55] VITALS: BP 118/69; PULSE 79; RESP 16; TEMP 36.6; O2SAT 95
[2023-10-25 06:24] LABS: Hemoglobin* 8.6 gm/dL (12.0-16.0)
[2023-10-25] MEDS: DOCUSATE SODIUM 100 MG CAPSULE PO (08:24)
[2023-10-25] MEDS: OXYCODONE 5 MG TABLET PO ×2 (08:25→14:11)
[2023-10-25] MEDS: FERROUS SULFATE 325 MG TABLET PO (08:25)
[2023-10-25] MEDS: DULOXETINE 30 MG CAPSULE DR 60 MG PO (08:27)
[2023-10-25] MEDS: GABAPENTIN 100 MG CAPSULE PO (08:27)
[2023-10-25] MEDS: buPROPion XL 150 MG TABLET PO (08:27)
[2023-10-25 08:33] VITALS: BP 114/74; PULSE 77; RESP 16; TEMP 36.6; O2SAT 96
--- NOTE | 2023-10-25 12:32 | PM.OBDSVD1 ---
DS: Providers Provider Date Seen: 10/25/23 Date of admission: 10/23/23 16:51 Primary care physician: Not a Local Provider Admitting Clinician: Etelvina Roque MD Attending Physician on discharge: Etelvina Roque MD Date of Discharge: 10/25/23 DS: Diagnosis Discharge Diagnosis (1) Lactating mother: Status: Acute (2) care following vaginal delivery: Status: Acute (3) ADHD: Status: Acute (4) Depression: Status: Acute (5) History of Germaine-en-Y gastric bypass: Status: Acute Problem details: 2020 (6) Tobacco dependence: Status: Acute (7) Cannabis use disorder: Status: Acute (8) PTSD (post-traumatic stress disorder): Status: Acute (9) Adjustment disorder with mixed anxiety and depressed mood: Status: Acute (10) Anxiety: Status: Chronic (11) Asthma: Status: Chronic Exam Narrative: Exam Narrative: GENERAL APPEARANCE:? normal affect, alert, no distress? MOOD:? appropriate? CHEST:? clear to auscultation and percussion? HEART:? regular rate and rhythm? ABDOMEN:? soft, non-tender the uterine fundus is U/2 and is appropriate for the stage of recovery.? PERINEUM:? mild edema of the perineum, there is a intact perineum that is healing well.? EXTREMITIES:? normal and no edema? Const: Vital Signs, click to edit/add: Vital Signs - 24 hr 10/24/23 13:10 10/24/23 16:45 10/24/23 22:00 Temperature 98 F 98.9 F 97.9 F Pulse Rate [Pulse Oximeter] 77 74 77 Respiratory Rate 18 16 16 Blood Pressure [Ri ght Arm] 125/76 111/74 120/78 Pulse Oximetry 97 96 97 Oxygen Delivery Me thod Room Air Room Air Room Air 10/25/23 01:55 10/25/23 08:33 Temperature 97.8 F 97.9 F Pulse Rate [Pulse Oximeter] 79 77 Respiratory Rate 16 16 Blood Pressure [Ri ght Arm] 118/69 114/74 Pulse Oximetry 95 96 Oxygen Delivery Me thod Room Air Room Air Documenting provider has reviewed patient's vital signs: yes OB - DS: Summary Hospital Course Hospital Course: Mary Ellen feels well.? Her pain is well controlled with current medications.? She has no new complaints.? Urinary output is adequate and she is voiding without difficulty.? Has a good appetite, is tolerating a general diet, is passing flatus, and has had a bowel movement.? Has scant amount of rubra lochia.? She is ambulating well.?She is and states that it is going much better this time than it did with any of her other children. She is unable to take NSAIDs and is experiencing intense cramping with and back pain. She is requesting oxycodone to go home with for her cramping for the first couple of days. Also encouraged heat, ice, and baths for additional pain relief. She is planning depo injections of contraception. She is also trying to convince her partner to get a vasectomy. Peripartum Data delivery method: Vaginal Laceration description: None Episiotomy description: None complications: none [place] Gender: Female Infant Discharge Plan: Home Status at Discharge Functional status at discharge: independent ambulation Overall status at discharge: patient is progressing back to baseline Time Spent with Patient Time attestation: Total time spent providing and/or coordinating discharge services: Discharge Plan Discharge Disposition: Home, Self-Care Date of Admission: 10/23/23 16:51 Attending Provider on Discharge: Beverly Del Rosario Primary Care Provider: Provider,Not a Local Condition: Stable Anticipated Discharge Date/Time: 10/25/23 13:00 Discharge Medications: New docusate sodium 100 mg Capsule 100 mg PO DAILY Qty: 90 0RF Rx Instructions: Take 1-2 tablets daily as needed for constipation. oxycodone 5 mg tablet 5 mg PO Q6-8H PRN (Reason: pain) Qty: 14 0RF ferrous sulfate 325 mg (65 mg iron) Tablet 325 mg PO Q OTHER DAY Qty: 60 0RF Continued albuterol sulfate 90 mcg/actuation HFA aerosol inhaler 1 puff inhalation Q1H PRN Hold Instructions: Patient states she has not taken in years cetirizine 10 mg tablet 10 mg PO QDAY PRN Hold Instructions: Patient states she is no longer using this duloxetine 60 mg capsule,delayed release(DR/EC) 60 mg PO QDAY Qty: 30 1RF bupropion HCl 150 mg tablet extended release 24 hr 150 mg PO QAM ondansetron 4 mg tablet,disintegrating 4 mg PO Q8H PRN (Reason: nausea and vomiting) Qty: 30 0RF gabapentin 100 mg capsule 100 mg PO QDAY hydroxyzine HCl 50 mg tablet 50 mg PO TID PRN Patient Comments: May take 1-2 tablets TID PRN famotidine 40 mg tablet 40 mg PO BID Qty: 60 0RF dextroamphetamine-amphetamine 10 mg tablet 15 mg PO DAILY Qty: 15 0RF prochlorperazine maleate 5 mg tablet 5 mg PO TID PRN (Reason: migraine headache) Qty: 10 0RF ferrous sulfate 324 mg (65 mg iron) tablet,delayed release (DR/EC) 324 mg PO Q OTHER DAY Qty: 30 0RF Hold Instructions: Order Change Discontinued sbprjzsbej-psvkeyaefxwsv-gztw 50-325-40 mg tablet 1 tab PO Q4-6H PRN (Reason: pain) Qty: 20 0RF Discharge Orders: Discharge Order (Routine); Ordered 10/25/23 Ordered By: Beverly Del Rosario Patient Education: OB Vaginal/Breast Feeding Additional Instructions: Discharge instructions were reviewed with the patient including signs and symptoms of infection and home going medications.? Do not drive while taking narcotic pain meds.? Off Work or School for 6 weeks.? ?? Symptoms to report to doctor:? -Bleeding that saturates more than one pad per hour? -Passing clots larger than the size of a golf ball? -Pain not relieved by prescribed medication? -Fever above 100.4 degrees Fahrenheit? -A foul vaginal odor? -Difficulty in emotions, mood and functions? -Thoughts of hurting yourself and/or ? -Painful, reddened area in your breast? -Any drainage, redness or tenderness in your IV/epidural site? -Severe headache that doesn't improve after taking medications? -Changes in vision, including temporary loss of vision, blurred vision, and/or light sensitivity? -Upper abdominal pain (usually under ribs on the right side)? -Decrease in urination or painful, frequent urinating? -Chest pain? -Shortness of breath? -Tenderness or pain with redness and/swelling in the calf(s) of your leg? ?? Follow Up in clinic in 2 and 6 weeks.? ?? consultation services are available to all mothers and babies for the first year after delivery.? To make an appointment, please call [phone].? Activity Level: Activity as Tolerated Discharge Diet: Regular Follow Up Appointments: [facility] [Provider Group] Provider,Not a Local [Primary Care Provider] - Forms: MyHealth Info Instructions
[2023-10-26 19:15] LABS: Rapid Plasma Reagin (RPR) Non Reactive (Non Reactive)
== END 2023-10-25 14:27 | disposition home or self-care (01) | DRG 806 ==
LOC: OB OUT 16:52 → OB 10-24 10:23
PROVIDERS: Admitting Provider Obstetrics & Gynecology; Visit Provider Obstetrics & Gynecology
DX: O99.344 Other mental disorders complicating childbirth (principal); O99.324 Drug use complicating childbirth; Z37.0 Single live birth; F41.9 Anxiety disorder, unspecified; F32.A Depression, unspecified; O99.334 Smoking (tobacco) complicating childbirth; Z3A.37 37 weeks gestation of pregnancy; O99.013 Anemia complicating pregnancy, third trimester; O99.02 Anemia complicating childbirth; D50.9 Iron deficiency anemia, unspecified; O43.113 Circumvallate placenta, third trimester; Z82.79 Family history of other congenital malformations, deformations and chromosomal abnormalities; F43.10 Post-traumatic stress disorder, unspecified; F12.90 Cannabis use, unspecified, uncomplicated; O99.844 Bariatric surgery status complicating childbirth; F90.9 Attention-deficit hyperactivity disorder, unspecified type; F43.23 Adjustment disorder with mixed anxiety and depressed mood; J45.909 Unspecified asthma, uncomplicated; O99.03 Anemia complicating the puerperium; O99.824 Streptococcus B carrier state complicating childbirth; O77.0 Labor and delivery complicated by meconium in amniotic fluid
CPT/HCPCS: 01967; 36415; 80306; 85018; 85025; 86592; 86850; 86900; 86901; G0463; A9270; J2371; J2590; J2795; J3370; J7030; J7120

== ENCOUNTER 2023-12-02 08:47 | Outpatient (CLI) | payer OTHER, BC, SELFPAY ==
--- NOTE | 2023-12-02 10:57 | W.PM.LAC.MC ---
Consult Note - Mom Date of Visit Date of visit: 12/02/23 independent marketing consultant: Cassidy Rangel Visit Code: Visit Patient's Information Phone number: [phone] : 6 Para: 5 Allergies NSAIDS (Non-Steroidal Anti-Inflamma Allergy (Severe, Verified 10/17/23 10:25) Abdominal Pain aspirin Adverse Reaction (Mild, Verified 10/17/23 10:25) Gastrointestinal Upset Cephalosporins Adverse Reaction (Mild, Verified 10/17/23 10:25) Gastrointestinal Upset penicillin V Adverse Reaction (Mild, Verified 10/17/23 10:25) Gastrointestinal Upset Mother's Medical History: Medical History (Updated 11/02/23 @ 00:01 by Background Daemon) UTI in ?O23.40 - Unspecified infection of urinary tract in , unspecified trimester (ICD-10) Circumvallate placenta ?O43.119 - Circumvallate placenta, unspecified trimester (ICD-10) Nausea/vomiting in ?O21.9 - Vomiting of , unspecified (ICD-10) Cystitis ?N30.90 - Cystitis, unspecified without hematuria (ICD-10) Vaginal delivery ?O80 - Encounter for full-term uncomplicated delivery (ICD-10) Precipitous delivery ?O62.3 - Precipitate labor (ICD-10) Alcohol use ?Z78.9 - Other specified health status (ICD-10) Retinal detachment ?H33.20 - Serous retinal detachment, unspecified eye (ICD-10) Hypokalemia ?E87.6 - Hypokalemia (ICD-10) labor without delivery ?O60.00 - labor without delivery, unspecified trimester (ICD-10) Family history of congenital heart defect ?Z82.79 - Family history of other congenital malformations, deformations and chromosomal abnormalities (ICD-10) Obesity ?E66.9 - Obesity, unspecified (ICD-10) History of abnormal cervical Pap smear ?Z87.42 - Personal history of other diseases of the female genital tract (ICD-10) History of gastric ulcer ?Z87.11 - Personal history of peptic ulcer disease (ICD-10) 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 Delivery Information Delivery type: Vaginal Weeks Gestation: 38 Gestational Age: AGA Weight: 2.64 kg Discharge Weight: 2.486 kg Baby's Information Baby's Age at Visit: 1m 8d Baby's Provider or Clinic: Dr. Pineda Jaundice: No Reason for Consult Reason for Consult: slow weight gain Past Experience Past Experience: Yes (per mom, didn't make enough milk for any of them, but she would like to) Current Frequency of Day Feedings: every 1-2 hours Frequency of Night Feedings: every 2-3 hours Both Breasts: Yes Suck: strong Latch: deep Length of Time: 15-20 minutes ea side Goals: at least 6 months, prefer 1 year Pumping Pumping: Yes Quantity Pumped: very occasional, gets 1 oz ea side when she does Supplementing EMB Supplement: No Formula Supplement: Yes (offered 2 oz twice each day over the weekend, irina took ~1 oz at a time) Baby Elimination Number of Wet Diapers a Day: 6 or more Number of BM a Day: 1-2 a day, had gone a weeks without pooping a few weeks ago Breast/Nipple Condition Engorgement: No Maternal Nipple Condition - Left: Common Nipple Maternal Nipple Condition - Right: Common Nipple and Other (has a milk bleb on her right nipple, has been sore for a few weeks, treating intermittently) Sore Nipples: No Interventions for Sore Nipples: Other (has tried coconut oil a few times only) Onsite Pre-Feed weight: 2.62 kg Post-Feed weight: 2.684 kg Milk Transferred (mL): 64 Pre-Nursing Left Nipple: Within Normal Limits Pre-Nursing Right Nipple: Within Normal Limits and Blisters (milk bleb noted) Post-Nursing Left Nipple: Within Normal Limits Post-Nursing Right Nipple: Within Normal Limits Assessments/Interventions Assessments/Interventions: Assessment/Interventions Irina nursed actively for 10 minutes ea side; transferred 36 ml on the first side (left breast) and 28ml on second side (right breast). From there, irina still nursing but decrease in strength of suckle and very infrequent swallowing heard. Irina then offered formula supplement, and took 15 ml quite readily, and then was calm and appear satiated. Mom would like to try all she can to boost her milk supply vs. using formula. Feeding plan developed as follows: 1. Mom to breastfeed baby every 2-2.5 hours, 10 minutes ea breast while baby is actively suckling and swallowing. When sucking turns nonnutritive, mom to switch to 2nd breast, or end feeding session to conserve energy. 2. To offer EBM and/or formula after each feeding to meet baby's caloric needs. Discussed baby's needs are surpassing her milk supply at the moment and she will need supplemental EBM/formula for growth. 3. Mom to pump after breastfeedings for 15-20 minutes to increase stimulation and milk supply. Give any EBM to baby before giving formula. Mom currently has: a hand pump, a Lansinoh wearable pump, another wearable but she doesn't remember the name, and an old Medela that she doesn't have all the parts for nor does she know if it works or not. Recommended a Spectra model over the hand pump or wearable for increase effectiveness given need to build supply. Message sent to Peds provider whom mom said would write a Rx for when he knew what was needed. Will try to get today as she is headed out of town for the week but also knows she needs to get going on pumping if she wants to build her supply. 4. Mom may elect to just pump a few feedings/day to allow time back due to intensity of feeding plan. 5. Discussed supply/demand nature of milk production. 6. Consider galactogogues (More Milk Plus, More Milk Special Blend, GoLacta), etc for milk stimulation. 7. Skin to skin may be helpful to build supply. 8. Follow up in 4 days to evaluate progress. Mom will call to schedule when she has her calendar available. 10. Discussed snacks for mom while nursing as she is not sure she is getting enough calories; history of gastric bypass may be altering her absorption as well. Healthy, easy snacks discussed. 9. Questions answered re: feeding plan/routine. Treatment of milk bleb: [place] oil or coconut oil to end of nipple to soften bleb Gentle massaging of plugged duct while nursing to help drain breast, hot pack prior to nursing and/or massaging may help loosen plugged duct and allow bleb to clear Time spent on visit with mom, and baby: 60 minutes Meds Home Medications and Allergies Home Medications ?Medication ?Instructions ?Recorded ?Confirmed ?Type albuterol sulfate 90 mcg/actuation 1 puff inhalation Q1H PRN 04/23/23 10/23/23 History aerosol inhaler cetirizine 10 mg tablet 10 mg PO QDAY PRN 05/21/23 10/23/23 History bupropion HCl 150 mg 24 hr tablet, 150 mg PO QAM 07/30/23 10/23/23 History extended release gabapentin 100 mg capsule 100 mg PO QDAY 08/27/23 10/23/23 History hydroxyzine HCl 50 mg tablet 50 mg PO TID PRN 08/27/23 10/23/23 History Allergies Allergy/AdvReac Type Severity Reaction Status Date / Time NSAIDS (Non-Steroidal Allergy Severe Abdominal Verified 10/17/23 10:25 Anti-Inflamma Pain aspirin AdvReac Mild Gastrointestinal Verified 10/17/23 10:25 Upset Cephalosporins AdvReac Mild Gastrointestinal Verified 10/17/23 10:25 Upset penicillin V AdvReac Mild Gastrointestinal Verified 10/17/23 10:25 Upset
== END 2023-12-02 08:48 | disposition home or self-care (01) ==
PROVIDERS: Visit Provider Obstetrics & Gynecology
DX: Z39.1 Encounter for care and examination of lactating mother (principal)
CPT/HCPCS: G0463

== ENCOUNTER 2024-05-26 09:22 | Outpatient (CLI) | payer OTHER, BC, SELFPAY | END 2024-05-26 09:23 | disposition home or self-care (01) | LOC: INJ CL 09:22 | PROVIDERS: Visit Provider Family Medicine | DX: M54.16 Radiculopathy, lumbar region (principal); M51.369 Other intervertebral disc degeneration, lumbar region without mention of lumbar back pain or lower extremity pain | CPT/HCPCS: 62323; J0702; Q9966 ==

== ENCOUNTER 2024-08-11 09:29 | Outpatient (CLI) | payer OTHER, BC, SELFPAY | END 2024-08-11 09:30 | disposition home or self-care (01) | LOC: INJ CL 09:31 | PROVIDERS: PCP Physician Assistant; Visit Provider Family Medicine | DX: M47.816 Spondylosis without myelopathy or radiculopathy, lumbar region (principal); M54.16 Radiculopathy, lumbar region; M51.360 Other intervertebral disc degeneration, lumbar region with discogenic back pain only | CPT/HCPCS: 64493; 64494; J0702; Q9966 ==

== ENCOUNTER 2024-10-16 09:42 | Outpatient (CLI) | payer OTHER, BC, SELFPAY ==
--- OUTSIDE RECORDS SUMMARY | 2019-05-22 10:37 | XMS_ITS | Continuity of Care Document ---
Author Organization [facility] Address [address] [address] [place] [address] Phone Care Team Providers Care Account Assistant Name Role Phone Jesus DOUGHERTY, Trevor Unavailable Unavailable Allergies, Adverse Reactions, Alerts Substance Reaction Status Criticality aspirin Abdominal pain Active No Informatio n cefprozil Active No Information ibuprofen Active No Information codeine Active No Information amoxicillin Active No Information Medications Medication Instructions Dosage Effective Dates (start - stop) Status Comments escitalopram 20 mg tablet take 1 Tablet by ORAL route every day 20 MG - Active albuterol sulfate HFA 90 mcg/actuation aerosol inhaler inhale 2 puff by inhalation route every 4 - 6 hours as needed - Active Reglan 10 mg tablet take by Oral route once as needed Not Available - Active pantoprazole 40 mg tablet,delayed release take 1 tablet by oral route every day 40 MG - Active Procedures Procedure Date Caceres PH Monitor Ugi Endo; W/bx 1/mx Level Iv-surg Path Gross/micro 20 EGD w/Caceres placement Esophageal Motility Study cancelled appt Advance Directives Directive Yes / No Effective Date File Name No Information Encounters Encounter Description Practice Location Reason(s) For Visit Diagnoses Date Provider Providers Copied on Encounter [facility], [address] [address], [place], [id number], [place] tel:[phone] Ayleen [facility] Gastro-esophageal reflux disease with esophagitis 0 Jesus Murray. [address] [facility], [place], [place], [address] , [place]. tel:[phone] Ajay Baker MD. tel:[phone] erring Provider: Osmar Olsen MD [address] [place], [address]. tel:[phone] [facility], [address] [address], [place], [address], [place] tel:[phone] [facility] Gastroesophageal reflux disease with esophagitisHiatal herniaGastro-esop hageal reflux disease without esophagitisDiseas e of stomach and duodenum, unspecifiedGastro -esophageal reflux disease without esophagitisDiaphr agmatic hernia without obstruction or gangrene 0 Sameer Humphreys. [address] [facility], [facility] [address], [place], [place], [id number] , [place]. tel:[phone] Referring Provider: Osmar Olsen MD [address] [place], [address]. tel:[phone] [facility], [address] [address], [place], [address], [place] tel:[phone] [facility] GI Symptoms or Concerns (chief complaint) Gastroesophageal reflux disease, esophagitis presence not specified 0 Colin Mcmahan. [address] [facility], [facility] [address], [place], [place], [id number] , [place]. tel:[phone] Referring Provider: Ajay Tabor, [address], [place], [address]. tel:[phone] [facility], [address] [address], [place], [address], [place] tel:[phone] [facility] No Information 0 Sameer Humphreys. [address] [facility], [address], [place], [place], [address] , [place]. tel:[phone] [facility], [address] [address], [place], [address], [place] tel:[phone] [facility] Gastroesophageal reflux disease with esophagitis 9 Kush Marc. [address] [place] [address] [address], [place], [id number] , [place]. tel:[phone] [facility], [address] [address], [place], [id number], [place] tel:[phone] [facility] GI Symptoms or Concerns (chief complaint) Epigastric painGastroesophag eal reflux disease with esophagitisDiarrh ea, unspecified typeDietary counseling and surveillance 9 Kush Marc. [address] [place] [address], [place], [id number] , [place]. tel:[phone] Referring Provider: Kris Rangel MD, [address], [address]. tel:[phone] Family History Family Member Type Diagnosis Age At Onset Mother Problem (finding) Obesity Problem (finding) Family history of gerd Mother Problem (finding) anxiety Problem (finding) Family history of Cardi ovascular disease Mother Problem (finding) hypercholesterolemia Problem (finding) Family history of coronary arteriosclerosis Immunizations Vaccine Date Status Comments Influenza administered Note: [facility] bi-d irectional interface ; Source: Other Registry Fluzone Quad 6mo or older administered Note: [facility] bi-direct ional interface ; Source: Other Registry tetanus toxoid, reduced diphtheria toxoid, and acellular pertussis vaccine, adsorbed administered Note: [facility] b i-directional interface ; Source: Other Registry Fluzone Quad 6mo or older administered Note: [facility] bi-direct ional interface ; Source: Other Registry Fluzone Quad 6mo or older administered Note: [facility] bi-direct ional interface ; Source: Other Registry Fluzone Quad 6mo or older administered Note: [facility] bi-direct ional interface ; Source: Other Registry varicella virus vaccine administered Note : [facility] bi-directional interface ; Source: Other Registry Fluzone Quad 6mo or older 4407-0304 administered Note: [facility] bi-direct ional interface ; Source: Other Registry tetanus toxoid, reduced diphtheria toxoid, and acellular pertussis vaccine, adsorbed administered Note: [facility] b i-directional interface ; Source: Other Registry human papilloma virus vaccin e, quadrivalent administered Note: [facility] bi-direct ional interface ; Source: Other Registry Influenza, seasonal, injecta ble, preservative free administered Note: [facility] bi-direct ional interface ; Source: Other Registry influenza virus vaccine, unspecified formulation administered Note: [facility] bi-di rectional interface ; Source: Other Registry Novel [id number], all formulations administered Note: [facility] bi-direct ional interface ; Source: Other Registry human papilloma virus vaccin e, quadrivalent administered Note: [facility] bi-direct ional interface ; Source: Other Registry human papilloma virus vaccin e, quadrivalent administered Note: [facility] bi-direct ional interface ; Source: Other Registry hepatitis B vaccine, unspeci fied formulation administered Note: [facility] bi-direct ional interface ; Source: Other Registry varicella virus vaccine administered Note : [facility] bi-directional interface ; Source: Other Registry hepatitis B vaccine, unspeci fied formulation administered Note: [facility] bi-direct ional interface ; Source: Other Registry hepatitis B vaccine, unspeci fied formulation administered Note: [facility] bi-direct ional interface ; Source: Other Registry tetanus toxoid, adsorbed administered Not e: [facility] bi-directional interface ; Source: Other Registry measles, mumps and rubella v irus vaccine administered Note: [facility] bi-direct ional interface ; Source: Other Registry tetanus toxoid, adsorbed administered Not e: [facility] bi-directional interface ; Source: Other Registry Haemophilus influenzae type b vaccine, PRP-OMP conjugate administered Note: [facility] bi -directional interface ; Source: Other Registry tetanus toxoid, adsorbed administered Not e: [facility] bi-directional interface ; Source: Other Registry measles, mumps and rubella v irus vaccine administered Note: [facility] bi-direct ional interface ; Source: Other Registry Haemophilus influenzae type b vaccine, PRP-OMP conjugate administered Note: [facility] bi -directional interface ; Source: Other Registry tetanus toxoid, adsorbed administered Not e: [facility] bi-directional interface ; Source: Other Registry Haemophilus influenzae type b vaccine, PRP-OMP conjugate administered Note: [facility] bi -directional interface ; Source: Other Registry tetanus toxoid, adsorbed administered Not e: [facility] bi-directional interface ; Source: Other Registry Haemophilus influenzae type b vaccine, PRP-OMP conjugate administered Note: [facility] bi -directional interface ; Source: Other Registry tetanus toxoid, adsorbed administered Not e: [facility] bi-directional interface ; Source: Other Registry Payers Payer name Insurance type Covered libertarian ID Authormannya narinder(s) [facility] [id number] Social History Type Description Quantity Date Captured Comments Alcohol Use Details Unknown Caffeine Use Details Unknown Tobacco Use Status No Information Smoking Status No Information Sex Female Chief Complaint And Reason For Visit No Information Reason For Referral Reason For Referral No Information Plan Of Treatment Date Type Action Status Goal Lifestyle education regardin g diet completed Referral Ordered: Caceres PH Monitor Appointment date/timeframe: -today ordered Referral Ordered: EGD Appointment date/timeframe: -today ordered Referral Ordered: referred to Surgery 1 Week Appointment date/timeframe: 7 Days ordered History Of Present Illness Encounter Date Complaint History Of Prese nt Illness GI Symptoms or Concerns GI Symptoms or Concerns Mary Ellen bear is a 28-year-old woman with history of obesity and chronic reflux and epigastric discomfort as well as history of cholecystectomy bout in 2012, who is sent for persistent reflux and epigastric pain despite multiple antacid medications. She is sent by her intranet support, Kris Rangel.Mary Ellen reports that she has been on many different PPI medications and on H2 blockers as well as with Carafate, but never had full control of her symptoms. She estimates that she has been on omeprazole, pantoprazole, and esomeprazole at least once and twice a day with only partial improvement in heartburn symptoms. She describes her epigastric pain as sometimes radiating to the right upper quadrant and having been present for about the last 6 years. This has been progressively worse. She has symptoms every day and probably about every couple of days she has severe episode that will result in her not being able to stay at work or to have to stop her car while she is driving. Pain Functional Status Date Functional Assessmen t No Information Instructions Date Instruction Additional Infor mation Gastroesophageal Reflux Disease Related to Hiatal hernia Hiatal Hernia Related to Hiata l hernia Gastroesophageal Reflux Disease Related to Gastroesophageal reflux disease with esophagitis Lifestyle education regarding di et Related to Dietary counseling and surveillance Assessments Type Assessment Date No Information Patient Care Teams Name Effective Dates (start - stop) Status Members No Information
--- OUTSIDE RECORDS SUMMARY | 2019-05-22 10:37 | XMS_ITS | Continuity of Care Document ---
Author Organization [facility] Address [address] [address] [place] [address] Phone Care Team Providers Care Vp Ad Products And Planning Name Role Phone Jesus DOUGHERTY, Trevor Unavailable [...] Diagnoses Date Provider Providers Copied on Encounter [facility], [address] [address], [place], [id number], [place] tel:[phone] Ayleen [facility] Gastro-esophageal reflux disease with esophagitis 0 Jesus Murray. [address] [facility], [address], [place], [place], [address] , [place]. tel:[phone] Ajay Baker MD. tel:[phone] erring Provider: Osmar Olsen MD [address] [place], [address]. tel:[phone] [facility], [address] [address], [place], [id number], [place] tel:[phone] [facility] Gastroesophageal reflux disease with esophagitisHiatal herniaGastro-esop hageal reflux disease without esophagitisDiseas e of stomach and duodenum, unspecifiedGastro -esophageal reflux disease without esophagitisDiaphr agmatic hernia without obstruction or gangrene 0 Sameer Humphreys. [address] [facility], [facility] [address], [place], [place], [id number] , [place]. tel:[phone] Referring Provider: Osmar Olsen MD [address], [address] [place], [address]. tel:[phone] [facility], [address] [address], [place], [address], [place] tel:[phone] [facility] GI Symptoms or Concerns (chief complaint) Gastroesophageal reflux disease, esophagitis presence not specified 0 Colin Mcmahan. [address] [facility], [facility] [address], [place], [place], [address] , [place]. tel:[phone] Referring Provider: Ajay Tabor, [address], [place], [address]. tel:[phone] [facility], [address] [address], [place], [address], [place] tel:[phone] [facility] No Information 0 Sameer Humphreys. [address] [facility], [address], [place], [address] , [place]. tel:[phone] [facility], [address] [address], [place], [id number], [place] tel:[phone] [facility] Gastroesophageal reflux disease with esophagitis 9 Kush Marc. [address] [place] [address] [address], [place], [id number] , [place]. tel:[phone] [facility], [address] [address], [place], [id number], [place] tel:[phone] [facility] GI Symptoms or Concerns (chief complaint) Epigastric painGastroesophag eal reflux disease with esophagitisDiarrh ea, unspecified typeDietary counseling and surveillance 9 Kush Marc. [address] [place] [address], [place], [id number] , [place]. tel:[phone] Referring Provider: Kris Rangel MD, [address], [address]. tel:[phone] Family History Family Member Type Diagnosis Age [...] Other Registry Fluzone Quad 6mo or older 9998-3642 administered Note: [facility] bi-direct ional interface ; [...] rectional interface ; Source: Other Registry Novel [id number], all formulations administered Note: [facility] bi-direct ional [...] Registry Payers Payer name Insurance type Covered democrat ID Authormannya narinder(s) [facility] [id number] Social History Type Description Quantity Date Captured [...] antacid medications. She is sent by her feed project engineer, Kris Rangel.Mary Ellen reports that she has [...]
--- OUTSIDE RECORDS SUMMARY | 2019-05-22 10:37 | XMS_ITS | Continuity of Care Document ---
Author Organization [facility] Address [address] [address] [place] [address] Phone Care Team Providers Care Cardiac Cath Lab Technologist Name Role Phone Jesus DOUGHERTY, Trevor Unavailable [...] Diagnoses Date Provider Providers Copied on Encounter [facility], [address] [address], [place], [id number], [place] tel:[phone] Ayleen [facility] Gastro-esophageal reflux disease with esophagitis 0 Jesus Murray. [address] [facility], [address], [place], [place], [id number] , [place]. tel:[phone] Ajay Baker MD. tel:[phone] erring Provider: Osmar Olsen MD [address] [place], [address]. tel:[phone] [facility], [address] [address], [place], [address], [place] tel:[phone] [facility] Gastroesophageal reflux disease with esophagitisHiatal herniaGastro-esop hageal reflux disease without esophagitisDiseas e of stomach and duodenum, unspecifiedGastro -esophageal reflux disease without esophagitisDiaphr agmatic hernia without obstruction or gangrene 0 Sameer Humphreys. [address] [facility], [facility] [address], [place], [place], [address] , [place]. tel:[phone] Referring Provider: Osmar Olsen MD [address], [address] [place], [address]. tel:[phone] [facility], [address] [address], [place], [address], [place] tel:[phone] [facility] GI Symptoms or Concerns (chief complaint) Gastroesophageal reflux disease, esophagitis presence not specified 0 Colin Mcmahan. [address] [facility], [facility] [address], [place], [address] , [place]. tel:[phone] Referring Provider: Ajay Tabor, [address], [place], [address]. tel:[phone] [facility], [address] [address], [place], [address], [place] tel:[phone] [facility] No Information 0 Sameer Humphreys. [address] [facility], [address], [place], [place], [id number] , [place]. tel:[phone] [facility], [address] [address], [place], [address], [place] tel:[phone] [facility] Gastroesophageal reflux disease with esophagitis 9 Kush Marc. [address] [place] [address] [address], [place], [id number] , [place]. tel:[phone] [facility], [address] [address], [place], [address], [place] tel:[phone] [facility] GI Symptoms or Concerns (chief complaint) Epigastric painGastroesophag eal reflux disease with esophagitisDiarrh ea, unspecified typeDietary counseling and surveillance 9 Kush Marc. [address] [place] [address] [address], [place], [id number] , [place]. [phone] Referring Provider: Kris Rangel MD, [address], [address]. tel:[phone] Family History Family Member Type Diagnosis Age [...] Other Registry Fluzone Quad 6mo or older 3214-7665 administered Note: [facility] bi-direct ional interface ; [...] rectional interface ; Source: Other Registry Novel [id number], all formulations administered Note: [facility] bi-direct ional [...] Registry Payers Payer name Insurance type Covered green party ID Authormannya narinder(s) [facility] [id number] Social History Type Description Quantity Date Captured [...] antacid medications. She is sent by her financial recruiter, Kris Rangel.Mary Ellen reports that she has [...]
--- OUTSIDE RECORDS SUMMARY | 2024-10-16 09:52 | XMS_ITS | Clinical Summary ---
Author Organization [facility] [place] [address] Care Team Providers Care Revenue Enforcement Collection Agent Name Role Phone No Ref-Primary, Physician Primary Care Provider Active Problems Problem Noted Date Diagnosed Date S/P gastric bypass 01/21/2020 Overview (04/25/2023): Dr. Martinez Social History Tobacco Use Types Packs/Day Years Used Date Smoking Tobacco: Never Assessed Adolescent Education Answer Date Record ed Getting School Help Needed Not on file 04/25 Comments No Sex and Gender Information Value Date Recorded Sex Assigned at Not on file Legal Sex Female 9:39 AM [employer] Gender Identity Not on file Sexual Orientation Not on file Last Filed Vital Signs Vital Sign Reading Time Taken Comments Blood Pressure 101/64 06/12/2023 9:38 AM [employer] Pulse 75 06/12/2023 9:38 AM [employer] Temperature - - Respiratory Rate - - Oxygen Saturation 99% 06/12/2023 9:38 AM [employer] Inhaled Oxygen Concentration - - Weight - - Height - - Body Mass Index - - Plan of Treatment Health Maintenance Due Date Last Done Comments ADVANCE CARE PLANNING 1991 ANNUAL REVIEW OF HM ORDERS 1990 YEARLY PREVENTIVE VISIT 08/08/2023 08/07/2022, 05/19 COVID-19 VACCINE ( season) 2023 04/23/2023, 09/07/2020, 08/17/2020 PHQ-2 (once per calendar year) 2024 PAP 05/19/2024 05/19/2021 INFLUENZA VACCINE (Season Ended) 2024 02/07/2023, 05/19/2021, 01/18/2020, Additional history exists DTAP/TDAP/TD VACCINE (8 - Td or Tdap) 12/07/2027 12/06/2017, 02/22/2012, 12/07/2002, Additional history exists ZOSTER VACCINE (1 of 2) 2041 HEPATITIS B VACCINE Completed 06/29/2003, 06/29/2003, 06/29/2003, Additional history exists HPV VACCINE Completed 03/26/2011, 02/28, 05/19/2008, Additional history exists HEPATITIS C SCREENING Completed 08/15/2017 PNEUMOCOCCAL VACCINE: PEDIATRICS (0 to 5 YEARS) AND AT-RISK PATIENTS (6 to 49 YEARS) Aged Out 08/07/2022, 05/19/2021 No longer eligibl e based on patient's age to complete this topic HIV SCREENING Completed 03/07/2023 MENINGITIS VACCINE Aged Out No longer eligible based on patient's age to complete this topic Insurance [employer] [facility] Care Teams Revenue Enforcement Collection Agent Relationship Specialty Start Date End Date No Ref-Primary, Physician PCP - General 04/25/23
--- OUTSIDE RECORDS SUMMARY | 2024-10-16 09:52 | XMS_ITS | Clinical Summary ---
Author Organization [employer] [facility] Address [address] [place] [id number] Care Team Providers Care Wood Cabinetmaker Name Role Phone Isaak Martinez MD Unavailable [phone] Pamela Mccullough RN Unavailable Shaunna Champagne RD Unavailable Shaunna Appiah Primary Care Provider [phone] Allergies Active Allergy Reactions Criticality Noted Date Comments Amoxicillin Rash,Stomach Upset 08/13/2006 Hives-when younger Aspirin Rash 08/13/2006 Cefprozil GI Upset 08/13/2006 Hives-as a child Ibuprofen GI Bleeding 05/14/2016 Hydrocodone-Acetaminoph en *Unknown 01/21/2020 Ineffective Medications sulfacetamide sodium-sulfur (SUMAXIN) 8-4 % suspension WASH TO AFFECTED AREA DAILY, ONGOING 06/28/19 23 Active albuterol HFA (PRO-AIR; VENTOLIN; PROVENTIL) 90 mcg/actuation inhalerIndication s:History of wheezing Inhale 2 Puffs by mouth every 4 hours if needed for Shortness Of Breath or Wheezing (SOB). 18 g 1 01/21/20 24 Active acetaminophen-caf feine-butalbital (FIORICET) 325-40-50 mgIndications:Asaf gris without aura and without status migrainosus, not intractable Take 1 Tablet by mouth every 4 hours if needed for Migraine. Max 6 doses per day. Max acetaminophen dose 4000mg in 24 hrs. 20 Tablet 2 01/21/20 24 Active cyclobenzaprine (FLEXERIL) 10 mg tabletIndications :Acute bilateral low back pain, unspecified whether sciatica present Take 1 Tablet (10 mg) by mouth 3 times daily if needed for Muscle Spasm. 21 Tablet 01/29/20 24 Active prazosin (MINIPRESS) 1 mg capsuleIndication s:PTSD (post-traumatic stress disorder) Take 1 Capsule (1 mg) by mouth at bedtime. 90 Capsule 3 03/10/20 24 Active DULoxetine (CYMBALTA) 60 mg Delayed-release capsuleIndication s:Generalized anxiety disorder Take 1 Capsule (60 mg) by mouth once daily. 90 Capsule 3 04/09/20 24 Active ondansetron (ZOFRAN ODT) 4 mg disintegrating tabletIndications :Nausea/vomiting in (HC) Place 1 Tablet (4 mg) on the tongue 3 times daily if needed for Nausea/Vomiting. 30 Tablet 2 04/10/20 24 Active hydrOXYzine HCL (ATARAX) 25 mg tabletIndications :Anxiety Take 1-2 Tablets (25-50 mg) by mouth every 6 hours if needed for Anxiety. 60 Tablet 5 04/17/20 24 Active SUMAtriptan (IMITREX) 50 mg tabletIndications :Migraine without aura and without status migrainosus, not intractable Take 1 Tablet (50 mg) by mouth every 2 hours if needed for Migraine. Give at minimum 2hrs apart. Max Dose: 200mg per 24hrs. 10 Tablet 5 04/28/20 24 Active topiramate (TOPAMAX) 25 mg tabletIndications :Migraine without aura and without status migrainosus, not intractable Take 25 mg at bedtime for 2 weeks, then increase to 50 mg at bedtime. 180 Tablet 1 04/28/20 24 Active DULoxetine (CYMBALTA) 30 mg Delayed-release capsuleIndication s:FRANKLIN (generalized anxiety disorder) Take 1 Capsule (30 mg) by mouth once daily. Take in addition to 60 mg, for total daily dose of 90 mg. 90 Capsule 3 04/28/20 24 Active tiZANidine 4 mg tabletIndications :Lumbar radiculopathy Take 1 Tablet (4 mg) by mouth every 8 hours if needed for Muscle Spasm. 60 Tablet 5 07/23/19 25 Active spironolactone 100 mg tabletIndications :Hidradenitis suppurativa Take 1 Tablet (100 mg) by mouth once daily in the morning. 90 Tablet 3 08/08/19 25 Active varenicline tartrate 0.5 mg (11)- 1 mg (42) tabletIndications :Tobacco dependence Days 1-3 take 0.5mg once daily; Days 4-7 take 0.5mg twice daily; then increase to 1mg twice daily. Take with meals. 1 Packet 08/19/19 25 Active varenicline tartrate 1 mg tabletIndications :Tobacco dependence Take 1 mg by mouth two times daily with meals. 112 Tablet 08/19/19 25 Active methylPREDNISolon e (Medrol (Teja)) 4 mg tabletIndications :Lumbar radiculopathy Take by mouth as instructed per packaging. 21 Tablet 09/16/19 25 Active gabapentin 300 mg capsuleIndication s:Lumbar radiculopathy Take 1 Capsule (300 mg) by mouth at bedtime. 30 Capsule 2 09/26/19 25 Active traMADoL 50 mg tabletIndications :Lumbar radiculopathy,Bul ging lumbar disc,Lumbar facet arthropathy Take 1 Tablet (50 mg) by mouth 3 times daily if needed for Pain. 24 Tablet 1 09/26/19 25 Active dexmethylphenidat e (Focalin) 10 mg tabletIndications :ADHD (attention deficit hyperactivity disorder), combined type Take 1 Tablet (10 mg) by mouth two times daily. 30 Tablet 10/18/19 25 Active dexmethylphenidat e (Focalin) 10 mg tabletIndications :ADHD (attention deficit hyperactivity disorder), combined type Take 1 Tablet (10 mg) by mouth two times daily. 60 Tablet 10/09/19 25 Active oxyCODONE-acetami nophen (10-325 mg) (Percocet) 10-325 mg per tabletIndications :Lumbar radiculopathy Take 0.5-1 Tablets by mouth at bedtime. Discontinue 5mg dose 30 Tablet 10/10/19 25 Active dexmethylphenidat e (Focalin) 10 mg tabletIndications :ADHD (attention deficit hyperactivity disorder), combined type Take 1 Tablet (10 mg) by mouth two times daily. 60 Tablet 08/19/19 25 025 dexmethylphenidat e (Focalin) 10 mg tabletIndications :ADHD (attention deficit hyperactivity disorder), combined type Take 1 Tablet (10 mg) by mouth two times daily. 60 Tablet 09/18/19 25 025 Discontin ued(Reord er (E-cancel not sent)) dexmethylphenidat e (Focalin) 10 mg tabletIndications :ADHD (attention deficit hyperactivity disorder), combined type Take 1 Tablet (10 mg) by mouth two times daily. 30 Tablet 10/18/19 25 025 Discontin ued(Other - add note to specify (E-cancel not sent)) oxyCODONE-acetami nophen (Percocet) 5-325 mg per tabletIndications :Lumbar radiculopathy Take 1 Tablet by mouth 2 times daily if needed for Pain. Max acetaminophen dose: 4000mg in 24 hrs. 60 Tablet 09/16/19 25 025 Discontin ued(*Medi cation adjustmen t) Hospital, Clinic, or Other Facility Administered Medication Ordered Dose Route Frequency Start Date End Date Status medroxyPROGESTERone acetate (contraceptive) (DEPO-PROVERA) injection 150 mgIndications:On Depo-Provera for contraception 150 mg IM Q 3 MONTHS (12 WEEKS) 02/28/2024 01/29/2025 Active Active Problems Patient Care Coordination No te Formatting of this note is d ifferent from the original. Nutrition order entered on 06/19/2019. Weight Management - Adult Surgical Program Initial Consult 06/19/2019 Dr. Colten Escobedo, RN is the Bariatric Nurse Clinician. Intake: Wt Readings from Last 1 Encounters: 06/19/19 107.2 kg (236 lb 6.4 oz) lbs Planned Operation Mahesh-en-Y Gastric Bypass Payor: / No coverage found. Est. Pgm Completion: December, Procedure Location: [facility] Co-morbidities: GERD Orders: Labs Yes Imaging no- GB out in 2013 Pre-Surgery Program Consults: - Registered Dietitian 6 consecutive - Psychological Evaluation: TBD Problem Noted Date Diagnosed Date Chronic radicular lumbar pain 03/14/2024 ADHD (attention deficit hype ractivity disorder), combined type 03/14/2024 FRANKLIN (generalized anxiety disorder) 03/14/2024 PTSD (post-traumatic stress disorder) 03/14/2024 Tobacco abuse 01/28/2023 Chronic knee pain 01/28/2023 Hidradenitis 01/28/2023 On Depo-Provera for contraception 10/10/2020 Status post bariatric surgery 01/31/2020 S/P laparoscopic mahesh-en-y g astric bypass, hiatal hernia repair 01/21/2020 Overview (01/21/2020): Dr. Martinez History of NSAID-associated gastropathy 02/25/20 18 Normal vaginal delivery of fourth 01/28 Positive GBS test 02/23/2018 labor in third trimester without deliver y 01/21/2018 Hypokalemia 01/21/2018 Normal , third trimester 10/10/2017 Encounter for supervision of normal in third trimester 08/15/2017 Generalized anxiety disorder 09/18/2016 HSIL (high grade squamous in traepithelial lesion) on Pap smear of cervix 05/30/2012 Overview (09/23/2012): S/p LEEP + ECC with Dr. Arzola 07/09. Needs pap every 3 months for 1 year. PARRIS III (cervical intraepithelial neoplasia III) 05/30/2012 Overview (09/03/2024): 06/2007 LSIL 02/2008 LSIL 01/2009 LSIL 09/2009 ASCUS/HPV+ 05/2012 HSIL 06/2012 COLP PARRIS 2-3 06/2012 LEEP cone PARRIS 2-3, clear margins (age 22) 04/2013 NIL 01/2014 NIL/HPV negative 05/2015 NIL/HPV negative 07/2017 NIL/HPV negative 04/2021 NIL/HPV negative 07/2024 NIL/HPV negative Plan: Pap/HPV due 07/2027 Obese 03/27/2012 Family history of congenital heart defect 2011 Mild intermittent asthma 09/01/2011 Overview (01/21/2018): Overview: Asthma NOS, w/o acute exacerbation Abdominal pain, epigastric Morbid obesity with BMI of 40.0-44.9, adult Hiatal hernia Resolved Problems Problem Noted Date Diagnosed Date Resolved Date Morbid obesity 01/21/2020 04/29/2024 Lactating mother 02/24/2018 04/29/2024 Normal in first trimester 03/12/2017 05/04/[address] 06/12/2012 7 Overview (06/11/2015): left arm, out 05/2018 High-risk 03/29/2012 06/12/19 13 Vaginal discharge in 03/28/2012 04/08/2012 Hx of PTL ( labor), current 2 06/12/2012 Supervision of other normal 08/03/2007 03/29/2012 Overview (01/23/2012): Immunization History Administered Date(s) Administered DTP 1991, 1991, 1991, 04/13/1994, 07/13/1996 HIB PRP-OMP (PedvaxHIB) 1991, 1991, 1991, 04/13/1994 Hepatitis B (Peds) 12/07/2002, 01/06/2003, 06/29/2003 Human Papilloma Virus Vaccine 03/17/2008, 05/19/2008, 03/26/2011 Influenza A (H1N1), Inactivated 02/23/2009 Influenza, Inactivated (Age >=3 years) 02/20/2010, 02/20/2011, 01/22/2012 MMR 04/13/1994, 12/07/2002 Oral Polio Vaccine 1991, 05/06/1992, 04/13/1994, 07/13/1996 Td (Age >=7 Years) 12/07/2002 Tuberculin (PPD) 08/02/2008 Varicella Vaccine 06/29/2003 Encounters Date Type Department Care Team Description 10/15/2024 Travel 10/08/2024 Telephone [facility] [address] [place] [address] Shaunna Appiah PA Questions; Medication Management (dexmethylphenidate (Focalin) 10 mg tablet) 10/08/2024 Telephone [facility] [address] [place] [address] Flakito Oh MD Questions 10/07/2024 Telephone [facility] [address] [facility] [place] [address] Flakito Oh MD Results 10/06/2024 8:00 AM CDT - 10/06/2024 11:59 PM CDT Hospital Encounter [facility] [address] [facility] [place] [address] Flakito Oh MD Lumbar radiculopathy; Bulging lumbar disc; Lumbar facet arthropathy 10/06/2024 Travel 09/25/2024 11:00 AM CDT Office Visit [facility] [address] [facility] [place] [address] Flakito Oh MD Musculoskeletal Problem (Follow up back pain, facet injections on 08/11/24) 09/25/2024 Travel 08/20/2024 8:15 AM CDT Nurse/Clinic Staff Only [facility] [address] [facility] [place] [address] Immunization/Injection (Depo next due 11/05/24 - 11/24/24) 08/20/2024 Travel 08/19/2024 Telephone [facility] [address] [facility] [place] [address] Shaunna Appiah PA Lab 08/18/2024 10:30 AM CDT Office Visit [facility] [address] [facility] [place] [address] Shaunna Appiah PA ER Follow up (UTI-still with burning and cramping-better than when she had infection but sx won't go away) 08/18/2024 Orders Only [facility] [address] [facility] [place] [address] Shaunna Appiah PA Lab (Order needs replaced) 08/18/2024 Telephone [facility] [address] [place] [address] Shaunna Appiah PA Prior Authorization (varenicline tartrate 1 mg tablet Approved August 18, 2024 to August 18, 2025) 08/18/2024 Travel 08/11/2024 9:40 AM CDT Office [facility] [address] [facility] [address] Flakito Oh MD Procedure (Right L4-5 and L5-S1 intra-articular injections ) 08/10/2024 Travel 08/05/2024 Refill [facility] [address] [facility] [place] [address] Shaunna Appiah PA Refill Request (methylphenidate HCl (Ritalin) 20 mg tablet/spironolactone (ALDACTONE) 100 mg tablet) 07/22/2024 3:00 PM CDT Office Visit [facility] [address] [facility] [place] [address] Flakito Oh MD Musculoskeletal Problem (Follow up back pain, MARTY on 05/26/24) 07/22/2024 Travel from Last 3 Months Immunizations Immunization Administration Dates Next Due COVID-19 vaccine (Optisort NTCrashmob 30mcg/0.3mL) PF, MDV 09/07/2020,08/17/2020 DTP 07/13/1996, 4,1991,1991,1991 HIB PRP-OMP (PedvaxHIB) 04/13/1994,10/08,1991,1991 Hepatitis B (Peds) 06/29/2003,01/06/2003, 003 Hepatitis B, Unspecified 06/29/2003,01/06/2003,0 12/07/2002 Human Papilloma Virus Vaccine 03/26/2011, 009,03/17/2008 Influenza A (H1N1), Inactivated 02/23/2009 Influenza, IIV3 (Age >=3 years) 01/22/2012,02/20,02/20/2010 Influenza, IIV4 02/07/2023,,01/18/2020,2018,01/06/2018,01/18/2017,02/21/2016,0 06/03/2015,02/19/2014 MMR 12/07/2002,04/13/1994 Oral Polio Vaccine 07/13/1996, 4,05/06/1992,1991 Pneumococcal Conj 20-valent (Prevnar 20) 08/07/2022 Pneumococcal conj 13-Valent (Prevnar 13) 05/19/2021 Td (Age >=7 Years) 12/07/2002 Tdap 12/06/2017,02/22/2012 Tetanus Toxoid 12/07/2002, 7,04/13/1994,1991,1991,1991 Tuberculin (PPD) 08/02/2008 Varicella Vaccine 02/19/2014,06/29/2003 Family History Medical History Relation Name Comments Heart murmur Brother 1 Claude Miscarriages / Stillbirths Child No Known Problems Daughter Diabetes Father Clotting disorder Maternal Grandfather Diabetes Maternal Grandfather Emphysema Maternal Grandfather Hypertension Maternal Grandfather Obesity Maternal Grandfather Heart Disease Maternal Grandmother Hyperlipidemia Maternal Grandmother Obesity Maternal Grandmother Diabetes Maternal Uncle Hyperlipidemia Mother Obesity Mother No Known Problems Paternal Grandfather No Known Problems Paternal Grandmother Heart Disease Son 1 Ricci Hole in heart, required surgery at age 7 months No Known Problems Son 2 No Known Problems Son 3 Relation Name Status Comments Brother 1 Claude Alive Brother 2 Alive Brother 3 Alive Child Daughter Alive Father Maternal Grandfather Alive Maternal Grandmother Alive Maternal Uncle Mother Alive Paternal Grandfather Alive Paternal Grandmother Alive Son 1 Ricci Alive Son 2 Alive Son 3 Alive Social History Tobacco Use Types Packs/Day Years Used Date Smoking Tobacco: Every Day Cigarettes 0.5 23.5 Started: 2001 Passive Smoke Exposure: Current Smokeless Tobacco: Never Tobacco Cessation:Ready to Q uit: No; Counseling Given: Yes Alcohol Use Standard Drinks/Week Comments Yes 2 (1 standard drink = 0.6 oz pur e alcohol) Occasionally PHQ-2 Answer Date Recorded PHQ-2 TOTAL SCORE 2 01/21/2024 Social Connections Answer Date Recorded Do you often feel lonely or isolated from those around you? 0 03/09/2024 Financial Resource Strain Answer Date R ecorded Difficulty of Paying Living Expenses 3 03/09/2024 Difficulty of Paying Living Expenses Not on file 03/09/2024 Food Insecurity Answer Date Recorded Do you worry your food will run out before you are able to buy more? 1 03/09/2024 Transportation Needs Answer Date Record ed Does lack of transportation keep you from medica l appointments? 1 03/09/2024 Does lack of transportation keep you from work, meetings or getting things that you need? 1 03/09/2024 Housing Stability Answer Date Recorded What is your housing situation today? 1 03/09/2024 Interpersonal Safety Answer Date Record ed Are you being hit, kicked, p ushed or yelled at (see row info)? Unable to assess, family/SO in room. 07/14/2024 Interpersonal Safety Abuse 12 - 18 Not on file 07/14/2024 Interpersonal Safety Ambulat ory Vulnerability Not on file 07/14/2024 Utilities Answer Date Recorded Do you have trouble paying f or utilities (for example, heat, electricity, water, phone)? 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 on file Not on file Not on file Obstetrics History Para Term AB IAB SAB Ectopic Multiple Livin g Live Births 6 4 4 0 1 0 1 0 1 4 3 Date Outcome GA Total Labor Labor/2nd/3rd Weight Sex Type Anes PTL Court A1 A5 Name Clin 2007 Term 38w 0d 3.25 kg (7 lb 2.6 oz) M Vag Epidur al Livin g Brennan Mccabe r/[place] Delivery Location:[facility] Comments:pushed x 20 m in 2009 Term 39w 0d 3.06 kg (6 lb 12 oz) M Vag Epidur al Livin g Viv Mccabe r/[place] Delivery Location:[facility] Comments:pushed 1 push 2011 Term 38w 0d 4h 00m/ 3.26 kg (7 lb 3 oz) F Vag-Sp ont Epidur al Y Livin g 9 9 Izabe lla Britney s Drevl ow Delivery Location:[facility] Comments:precip 2016 SAB 3w0 d SPONTA NEOUS 2017 Term 39w 0d 3.35 kg (7 lb 6 oz) M VAGINA L LEONARD 9 9 DELVIN MATA AMBER Delivery [facility] Term Term Last Filed Vital Signs Vital Sign Reading Time Taken Comments Blood Pressure 116/83 09/25/2024 11:16 AM CDT Pulse 138 09/25/2024 11:16 AM CDT Temperature 37.3 C (99.2 F) 09/25/2024 11:16 AM CDT Respiratory Rate 16 07/14/2024 2:15 PM CDT Oxygen Saturation 100% 09/25/2024 11:16 AM CDT Inhaled Oxygen Concentration - - Weight 65.8 kg (145 lb) 09/25/2024 11:16 AM CDT Height 162.6 cm (5' 4) 07/14/2024 2:07 PM CDT Body Mass Index 24.89 07/14/2024 2:07 PM CDT Plan of Treatment Upcoming Encounters Date Type Department Care Team (Late st Contact Info) Description 11/09/2024 4:00 PM CDT Nurse/Clinic Staff Only [facility] [address] [place] [address] 11/27/2024 10:40 AM CDT Office Visit [facility] [address] [place] [address] Flakito Oh MD [address] [place] [address] Health Maintenance Due Date Last Done Comments COVID-19 vaccine series ( season) 2023 04/23/2023, 09/07/2020, 08/17/2020 Influenza Vaccine (Season Ended) 2024 02/07/2023, 05/19/2021, 01/18/2020, Additional history exists BMI (ht and wt on same day) for age 18+ 01/20/2025 01/21/2024, 08/07/2022, 05/19/2021, Additional history exists Depression screening for age 12+ 01/20/2025 01/21/2024, 08/07/2022, 05/12/2021, Additional history exists Pap test for age 21-65 08/19/2027 , 08/18/2024, 05/19/2021, Additional history exists Tetanus booster 12/07/2027 12/06/2017, 01/28, 12/07/2002 Hepatitis B series for 19+ Completed 06/28, 06/29/2003, 01/06/2003, Additional history exists Hepatitis C screening for ag e 18-79 Completed 08/15/2017, 03/12/2017 Tdap Completed 12/06/2017, 02/22/2012 Pneumococcal series for age 6-49 Completed 08/08/19, 05/19/2021 HIV for age 15-65 Completed 03/07/2023, , 03/12/2017, Additional history exists Procedures Procedure Name Priority Date/Time Associated Diagnosis Comments AMB EPIDURAL STEROID INJECTION Routine 10/16/2024 7:58 AM CDT Lumbar radiculopathy Bulging lumbar disc Lumbar facet arthropathy MR SPINE LUMBAR WO Routine 10/06/2024 9: 03 AM CDT Lumbar radiculopathy Bulging lumbar disc Lumbar facet arthropathy TRICHOMONAS, FELIZ, AND BACTERIAL VAGINOSIS BY GEORGI Routine 08/18/2024 2:22 PM CDT Spotting URINALYSIS MACROSCOPIC - [facility] ONLY POC DIP (QUEST) Routine 08/18/2024 11:25 AM CDT Dysuria URINE CULTURE Routine 08/18/2024 11:25 AM CDT Dysuria URINALYSIS MICROSCOPIC Routine 08/18/2024 11:25 AM CDT 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 THIN PREP PAP SCREEN IMAGED Routine 08/18/2024 11:15 AM CDT Screening for malignant neoplasm of cervix HPV HIGH RISK Routine 08/18/2024 11:15 AM CDT Screening for malignant neoplasm of cervix XR INJ FACET JOINT LUMBAR 2 LEVEL RIGHT Routine 08/11/2024 12:00 AM CDT Lumbar radiculopathy Bulging lumbar disc Degeneration of intervertebral disc of lumbar region with discogenic back pain Lumbar facet arthropathy ANTI HIV 1/2 STAT 03/07/2023 7:14 PM 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 Normal alignment. No fractures 2. At L5-S1, disc degeneration. Small central disc protrusion. Annular fissure. No narrowing of the spinal canal. Mild narrowing of the bilateral neural foramina 3. No spinal canal or neural foraminal narrowing at the remaining levels. Dictated by Eze Rose MD @ 10/06/2024 1:39:34 PM (Electronically Signed) Narrative 10/06/2024 1:39 PM CDT For Patients: As a result of the Cures Act, medical imaging exams and procedure reports are released immediately into your electronic medical record. You may view this report before your referring provider. If you have questions, please contact your health care provider. INDICATION: Radiculopathy. COMPARISON: None. TECHNIQUE: Sagittal T1, T2, and STIR sequences. Axial T1 and T2 weighted sequences. FINDINGS: Normal vertebral body alignment. No fractures. No vertebral body loss of height. No spondylolisthesis. No ligamentous injury. No suspicious osseous lesions. Normal conus terminates at L1. T12-L1 L1-2 L2-3: No spinal canal or neural foraminal narrowing. L3-4: Annular bulge. No spinal canal or neural foraminal narrowing. L4-5: Annular bulge. Flattening of ventral thecal sac. No narrowing of spinal canal. No neural foraminal narrowing. L5-S1: Disc degeneration. Small central disc protrusion measures approximately 2 millimeters in short axis with an annular fissure. No narrowing of the spinal canal. No impingement of the traversing S1 nerve roots. Mild narrowing of bilateral foramina. Normal visualized SI joints. Normal paraspinal soft tissues. Procedure Note Eze Rose MD, PhD - 10/06/2024 For Patients: As a result of the Cures Act, medical imagingexams and procedure reports are released immediately into your electronicmedical record. You may view this report before your referring provider.If you have questions, please contact your health care provider. INDICATION: Radiculopathy. COMPARISON: None. TECHNIQUE: Sagittal T1, T2, and STIR sequences. Axial T1 and T2 weighted sequences. FINDINGS: Normal vertebral body alignment. No fractures. No vertebral body loss ofheight. No spondylolisthesis. No ligamentous injury. No suspicious osseouslesions. Normal conus terminates at L1. T12-L1 L1-2 L2-3: No spinal canal or neural foraminal narrowing. L3-4: Annular bulge. No spinal canal or neural foraminal narrowing. L4-5: Annular bulge. Flattening of ventral thecal sac. No narrowing ofspinal canal. No neural foraminal narrowing. L5-S1: Disc degeneration. Small central disc protrusion measuresapproximately 2 millimeters in short axis with an annular fissure. Nonarrowing of the spinal canal. No impingement of the traversing S1 nerveroots. Mild narrowing of bilateral foramina. Normal visualized SI joints. Normal paraspinal soft tissues. IMPRESSION: 1. Normal alignment. No fractures 2. At L5-S1, disc degeneration. Small central disc protrusion. Annularfissure. No narrowing of the spinal canal. Mild narrowing of the bilateralneural foramina 3. No spinal canal or neural foraminal narrowing at the remaininglevels. Dictated by Eze Rose MD @ 10/06/2024 1:39:34 PM (Electronically Signed) us Flakito Oh MD MR Final Resu lt * (ABNORMAL) TRICHOMONAS, FELIZ, AND BACTERIAL VAGINOSIS BY GEORGI (08/18/2024 2:22 PM CDT) FELIZ SPECIES Negative Negative 12:07 PM CDT [facility] FELIZ GLABRATA Negative Negative 08/19/2024 12:07 PM CDT [facility] TRICHOMONAS VVA Negative Negative 12:07 PM CDT [facility] BACTERIAL VAGINOSIS Positive(A) Negative 08/19/2024 12:07 PM CDT [facility] Other VAGINAL SWAB / Unknown Non-Blood / Unknown 08/18/2024 2:22 PM CDT 08/18/2024 2:22 PM CDT us Shaunna STODDARD MICROBIOLOG[facility] Final Resu lt [facility] [address] [place] [address], * POCT Urinalysis Dipstick Only [[id number]] (08/18/2024 11:25 AM CDT) Pathologist [facility] PH 7.0 5.0 - 8.0 [facility] SPECIFIC GRAVITY 1.020 1.001 - 1.035 [facility] GLUCOSE NEGATIVE NEGATIVE [facility] BILIRUBIN NEGATIVE NEGATIVE [facility] KETONES NEGATIVE NEGATIVE [facility] OCCULT BLOOD NEGATIVE NEGATIVE [facility] PROTEIN NEGATIVE NEGATIVE [facility] NITRITE NEGATIVE NEGATIVE [facility] LEUKOCYTE ESTERASE NEGATIVE NEGATIVE [facility] Comment: Summary of Demographics Changes Patient demographics have changed. No other changes to any test results have been made. Date Jayesh updated to: 08/18/2024 Changed on: 08/25/2024 Urine URINE SPECIMEN / Unknown 08/18/2024 11:25 AM CDT 08/19/2024 8:27 AM CDT Shaunna STODDARD URINE Final Resu lt [facility] [address] [place] [address], [facility] [address] [place] [address] * URINALYSIS MICROSCOPIC [05014.1] - routine (08/18/2024 11:25 AM CDT) RBC 0-2 0-2, None Seen /HPF 08/18/2024 3:48 PM CDT [facility] WBC 0-2 0-2, 3-5, None Seen /HPF 08/18/2024 3:48 PM CDT [facility] BACTERIA Rare None Seen, Rare, Few Bacteria/ HPF 08/18/2024 3:48 PM CDT [facility] EPITHELIAL CELLS None Seen None Seen, Few Epi/HPF 08/18/2024 3:48 PM CDT [facility] HYALINE CASTS 0-2 0-2, 3-5 /LPF 08/18/2024 3:48 PM CDT [facility] Urine URINE SPECIMEN / Unknown Non-Blood / Unknown 08/18/2024 11:25 AM CDT 08/18/2024 11:25 AM CDT Shaunna STODDARD URINE Final Resu lt [facility] [address] [place] [address], * URINE CULTURE [18398.2] (08/18/2024 11:25 AM CDT) CULTURE <10,000 CFU/mL multiple organisms 08/19/2024 1:51 PM CDT [facility] Urine URINE SPECIMEN / Unknown Non-Blood / Unknown 08/18/2024 11:25 AM CDT 08/18/2024 11:25 AM CDT Shaunna STODDARD MICROBIOLOGY Final Resu lt [facility] [address] [place] [address], * ASH CONVEYOR OPERATOR THIN PREP PAP SCREEN IMAGED (08/18/2024 11:15 AM CDT) Case Report Gynecologic Cytology Report Case: [id number] Authorizing Provider: Shaunna Appiah PA Collected: 08/18/2024 1115 Ordering Location: [facility] Received: 08/18/2024 1440 Clinic First Screen: Sherlyn Ribeiro Specimen: ASH CONVEYOR OPERATOR ThinPrep Vial Screening, Cervical 09/03/2024 11:07 AM CDT [facility] [employer] [facility] INTERPRETATION/ RESULT NEGATIVE FOR INTRAEPITHELIAL LESION OR MALIGNANCY (NIL) (none) 09/03/2024 11:07 AM CDT [facility] at 1107 CDT ORGANISM(S) Shift in rosalind suggestive of bacterial vaginosis 09/03/2024 11:07 AM CDT [facility] [employer] [place] [employer] [facility] SPECIMEN ADEQUACY Satisfactory for evaluation Endocervical component present 09/03/2024 11:07 AM CDT [facility] [employer] [facility] HPV REQUEST HPV and PAP 09/03/2024 11:07 AM CDT [facility] [employer] [facility] Date of LMP unknown 09/03/2024 11:07 AM CDT [facility] Last Pap Date 05/19/21 09/03/2024 11:07 AM CDT [facility] Last Pap Result NIL 11:07 AM CDT [facility] [employer] [facility] Abnormal Pap or Morning View Bx in last 5 years No 09/03/2024 11:07 AM CDT [facility] [employer] [facility] Menstrual Status Hormonally Suppressed 09/03/2024 11:07 AM CDT [facility] [employer] [place] [employer] [facility] Morning View Bx Done Today No 09/03/2024 11:07 AM CDT [facility] [employer] [facility] Additional Information None given 09/03/2024 11:07 AM CDT [facility] Comment: Cytology is screened at [facility] - [address], [place] [address] and [facility] - [address], [place] [address] and [facility] - [address] [place] [address] Interpreted at [facility] - [address], [place] [address] Automated Review Successful 09/03/2024 11:07 AM CDT [facility] Comment:Specimen processed s uccessfully by automated electrophysiology scientist device, ThinPrep Imaging System, [employer] ANCILLARY TESTING ASH CONVEYOR OPERATOR HPV Ordered, Please see separate report 09/03/2024 11:[address] [facility] Note The pap test is a screening technique, not a diagnostic procedure. It is used primarily to screen for squamous cancers and precursor lesions. Published studies have shown that it is subject to both false negative and false positive results. The pap test should not be used as the sole means to diagnose or exclude pre-malignant and malignant lesions. 09/03/2024 11:07 AM CDT [facility] Other (Cervical) Non-Blood / Unknown 08/18/2024 11:15 AM CDT 08/18/2024 2:40 PM CDT Shaunna STODDARD PATHOLOGY/CYTOLOGY Final R esult [facility] [address] [place] [address], * HPV HIGH RISK (08/18/2024 11:15 AM CDT) TYPE 16 Negative Negative 08/21/2024 2:15 PM CDT [facility] TYPE 18 Negative Negative 08/21/2024 2:15 PM CDT [facility] OTHER HIGH RISK TYPES Negative Negative 08/21/2024 2:15 PM CDT [facility] Other (Cervical) Non-Blood / Unknown 08/18/2024 11:15 AM CDT 08/19/2024 10:29 AM CDT Narrative [facility] - 08/21/2024 2:15 PM CDT HPV types 16, 18, 31, 33, 35, 39, 45, 51, 52, 56, 58, 59, 66 and 68 DNA were undetectable or below the pre-set threshold. Methodology: Estelle Khurram 4800 HPV Test Shaunna STODDARD MICROBIOLOGY Final Resu lt Performing Organization Address [facility] Co de Phone Number [facility] [address] [place] [phone], [place] * XR INJ FACET JOINT LUMBAR 2 LEVEL RIGHT (08/11/2024 12:00 AM CDT) Anatomical Region Laterality Modality LUMBAR SPINE Other Flakito Oh MD FLUOROSCOPY Final Resu lt * ANTI HIV 1/2 (03/07/2023 7:14 PM OIL PIPELINE DISPATCHER) Pathologist [facility] HIV-1/HIV-2 SCREEN Non-Reacti ve Non-Reacti ve 03/08/2023 2:31 PM OIL PIPELINE DISPATCHER [facility] Comment:HIV-1 p24 and HIV-1/ HIV-2 Ab Not Detected. Blood BLOOD SPECIMEN / Unknown Venipuncture / Unknown 03/07/2023 7:14 PM OIL PIPELINE DISPATCHER 03/07/2023 7:14 PM OIL PIPELINE DISPATCHER us Justyna Amaya RUBBER OFF SEND OUTS Final Result Performing Organization Address [facility] Co de Phone Number [facility] [address] [place] [address], [place] * ANTI HCV (08/15/2017 4:57 PM CDT) HEPATITIS C ANTIBODY Non-React kenna Non-React kenna 08/16/2017 5:33 PM CDT [facility] Comment:Antibodies to HCV no t detected; does not exclude the possibility of exposure to HCV. Blood BLOOD SPECIMEN / Unknown Venipuncture / Unknown 08/15/2017 4:57 PM CDT 08/15/2017 7:28 PM CDT Osmar Olsen DO SEND OUTS Final Res ult [facility] [address] [place] [address], from Last 3 Months or Most Recently Relevant to Health Maintenance Insurance [id number] [place] [address] [facility] [id number] [id number] [facility] NADYA ORDONEZ [facility] NAD[place] ORDONEZ [id number] [place] [id number] [facility] [id number] [place] [id number] [address] [place] [phone] Advance Directives * Full Code (Latest Code Status on File) Date Activated Date Inactivated Comments 01/27/2023 11:39 PM 01/28/2023 2:14 PM Question Answer Comments Code Status Discussion: Reviewed Preferences * Full Code Date Activated Date Inactivated Comments 06/09/2021 3:20 PM 06/09/2021 11:31 PM Question Answer Comments Code Status Discussion: Reviewed Preferences * Full Code Date Activated Date Inactivated Comments 01/21/2020 5:56 AM 01/22/2020 5:20 PM Question Answer Comments Code Status Discussion: Not Discussed * Full Code Date Activated Date Inactivated Comments 02/23/2018 9:32 AM 02/25/2018 7:04 PM * Full Code Date Activated Date Inactivated Comments 01/02/2018 8:21 AM 01/02/2018 1:51 PM Care Teams Wood Cabinetmaker Relationship Specialty Start Date End Date Shaunna Appiah PA [facility] [address] PCP - General Physician Stitch Burnisher 01/23/24 Isaak Martinez MD Surgery - General 06/23/19 Pamela Mccullough RN [address] [address] Nurse Clinician 06/23/[address] [place] [id number] Senior Analyst Market Intelligence 06/23/19
--- OUTSIDE RECORDS SUMMARY | 2024-10-17 00:23 | XMS_ITS | Clinical Summary ---
Author Organization [place] Address [facility] 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 CREAM CHEF Gender Identity Not on file Sexual Orientation Not on file Last Filed Vital Signs Vital Sign Reading Time Taken Comments Blood Pressure 101/64 06/12/2023 9:38 AM ICE CREAM CHEF Pulse 75 06/12/2023 9:38 AM ICE CREAM CHEF Temperature - - Respiratory Rate - - Oxygen Saturation 99% 06/12/2023 9:38 AM ICE CREAM CHEF Inhaled Oxygen Concentration - - Weight - [...] patient's age to complete this topic Insurance In Flow [facility] Care Teams Hand Candy Cutter Relationship Specialty Start Date End Date No Ref-Primary, Physician PCP - General 04/25/23
--- OUTSIDE RECORDS SUMMARY | 2024-10-17 00:23 | XMS_ITS | Clinical Summary ---
Author Organization [employer] Address [address] [place] [address] Care Team Providers Care Coiled Coil Inspector Name Role Phone Isaak Martinez MD Unavailable Pamela Mccullough RN Unavailable Shaunna Champagne RD Unavailable Shaunna Appiah Primary Care Provider [phone] Allergies Active Allergy Reactions Criticality Noted Date [...] found. Est. Pgm Completion: December, Procedure Location: [facility] Co-morbidities: GERD Orders: Labs Yes Imaging no- [...] Encounters Date Type Department Care Team Description 10/16/2024 9:40 AM CDT Office Visit [facility] [address] [place] [address] Flakito Oh MD Procedure (L5-S1 ILESI) 10/15/2024 Travel 10/08/2024 Telephone [facility] [address] [place], [place] [id number] Shaunna Appiah PA Questions; Medication Management (dexmethylphenidate (Focalin) 10 mg tablet) 10/08/2024 Telephone [facility] [address] [facility] [address] Flakito Oh MD Questions 10/07/2024 Telephone [facility] [address] [place] [address] Flakito Oh MD Results 10/06/2024 8:00 AM CDT - 10/06/2024 11:59 PM CDT Hospital Encounter [facility] [address] [facility] [place] [address] Flakito Oh MD Lumbar radiculopathy; Bulging lumbar disc; Lumbar facet arthropathy 10/06/2024 Travel 09/25/2024 11:00 AM CDT Office Visit [facility] [address] [place] [address] Flakito Oh MD Musculoskeletal Problem (Follow up back pain, facet injections on 08/11/24) 09/25/2024 Travel 08/20/2024 8:15 AM CDT Nurse/Clinic Staff Only [facility] [address] [facility] [place] [address] Immunization/Injection (Depo next due 11/05/24 - 11/24/24) 08/20/2024 Travel 08/19/2024 Telephone [facility] [address] [place] [address] Shaunna Appiah PA Lab 08/18/2024 10:30 AM CDT Office Visit [address] [address] Shaunna Appiah PA ER Follow up (UTI-still with burning and cramping-better than when she had infection but sx won't go away) 08/18/2024 Orders Only [address] [address] Shaunna Appiah PA Lab (Order needs replaced) 08/18/2024 Telephone [facility] [address] [place] [address] Shaunna Appiah PA Prior Authorization (varenicline tartrate 1 mg tablet Approved August 18, 2024 to August 18, 2025) 08/18/2024 Travel 08/11/2024 9:40 AM CDT Office Visit [facility] [address] [facility] [place] [address] Flakito Oh MD Procedure (Right L4-5 and L5-S1 intra-articular injections ) 08/10/2024 Travel 08/05/2024 Refill [facility] [address] [place] [address] Sahunna Appiah PA Refill Request (methylphenidate HCl (Ritalin) 20 mg tablet/spironolactone (ALDACTONE) 100 mg tablet) 07/22/2024 3:00 PM CDT Office Visit [facility] [address] [place] [address] Flakito Oh MD Musculoskeletal Problem (Follow up back pain, MARTY on 05/26/24) 07/22/2024 Travel from Last 3 Months Immunizations Immunization Administration Dates Next Due COVID-19 vaccine (Fylet NTCHiWAO Mobile App 30mcg/0.3mL) SUSAN RAMIREZ 09/07/2020,08/17/2020 DTP 07/13/1996, 4,1991,1991,1991 HIB PRP-OMP (PedvaxHIB) 04/13/1994,10/08,1991,1991 Hepatitis B (Peds) 06/29/2003,01/06/2003, 003 Hepatitis B, Unspecified 06/29/2003,01/06/2003,0 12/07/2002 Human Papilloma Virus Vaccine 03/26/2011, 009,03/17/2008 Influenza A (H1N1), Inactivated 02/23/2009 Influenza, IIV3 (Age >=3 years) 01/22/2012,02/20,02/20/2010 Influenza, IIV4 02/07/2023, 2,01/18/2020,2018,01/06/2018,01/18/2017,02/21/2016,0 06/03/2015,02/19/2014 MMR 12/07/2002,04/13/1994 Oral Polio Vaccine 07/13/1996, [...] PM CDT Legal Sex Female 5:19 AM FLYING TEACHER Gender Identity Female 12/08/2019 7:45 PM CDT [...] Y Livin g 9 9 Izabe lla Rosemary s Drevl ow Delivery Location:[facility] Comments:precip 2016 SAB 3w0 d SPONTA NEOUS 2017 Term 39w 0d 3.35 kg (7 lb 6 oz) M VAGINA L LEONARD 9 9 ROSEMARY S,BB, MARY ELLEN Delivery [facility] Term Term Last Filed Vital Signs Vital [...] 11/09/2024 4:00 PM CDT Nurse/Clinic Staff Only [facility] [address] [place] [address] 11/27/2024 10:40 AM CDT Office Visit [facility] [address] [place] [address] Flakito Oh MD [address] [place] [address] Health Maintenance Due Date Last Done Comments [...] 2:22 PM CDT Spotting URINALYSIS MACROSCOPIC - [facility] ONLY POC DIP (QUEST) Routine 08/18/2024 11:25 AM CDT Dysuria URINE CULTURE Routine 08/18/2024 11:25 AM CDT Dysuria URINALYSIS MICROSCOPIC Routine 08/18/2024 11:25 AM CDT Dysuria MEDICAL BILLER CODER THIN PREP PAP SCREEN IMAGED Routine 08/18/2024 [...] ANTI HIV 1/2 STAT 03/07/2023 7:14 PM FLYING TEACHER , unspecified gestational age (HC) Vaginal discharge [...] For Patients: As a result of the Century Cures Act, medical imaging exams and procedure [...] For Patients: As a result of the Century Cures Act, medical imagingexams and procedure reports [...] FELIZ SPECIES Negative Negative 12:07 PM CDT [facility] FELIZ GLABRATA Negative Negative 08/19/2024 12:07 PM CDT [facility] TRICHOMONAS VVA Negative Negative 12:07 PM CDT [facility] BACTERIAL VAGINOSIS Positive(A) Negative 08/19/2024 12:07 PM CDT [facility] Other VAGINAL SWAB / Unknown Non-Blood / Unknown 08/18/2024 2:22 PM CDT 08/18/2024 2:22 PM CDT Shaunna STODDARD MICROBIOLOGY Final Resu lt [facility] [address] [place] [address], * POCT Urinalysis Dipstick Only [[id number]] (08/18/2024 11:25 AM CDT) Pathologist [facility] PH 7.0 5.0 - 8.0 [facility] SPECIFIC GRAVITY 1.020 1.001 - 1.035 [facility] GLUCOSE NEGATIVE NEGATIVE [facility] BILIRUBIN NEGATIVE NEGATIVE [facility] KETONES NEGATIVE NEGATIVE [facility] OCCULT BLOOD NEGATIVE NEGATIVE [facility] PROTEIN NEGATIVE NEGATIVE [facility] NITRITE NEGATIVE NEGATIVE [facility] LEUKOCYTE ESTERASE NEGATIVE NEGATIVE [facility] Comment: Summary of Demographics Changes Patient demographics have changed. No other changes to any test results have been made. Date Jayesh updated to: 08/18/2024 Changed on: 08/25/2024 Urine URINE SPECIMEN / Unknown 08/18/2024 11:25 AM CDT 08/19/2024 8:27 AM CDT Shaunna STODDARD URINE Final Resu lt [email or web address] [address] [place] [address], [facility] [address] [place] [address] * URINALYSIS MICROSCOPIC [13427.1] - routine (08/18/2024 11:25 AM CDT) RBC 0-2 0-2, None Seen /HPF 08/18/2024 3:48 PM CDT [facility] WBC 0-2 0-2, 3-5, None Seen /HPF 08/18/2024 3:48 PM CDT [facility] BACTERIA Rare None Seen, Rare, Few Bacteria/ HPF 08/18/2024 3:48 PM CDT [facility] EPITHELIAL CELLS None Seen None Seen, Few Epi/HPF 08/18/2024 3:48 PM CDT [facility] HYALINE CASTS 0-2 0-2, 3-5 /LPF 08/18/2024 3:48 PM CDT [facility] Urine URINE SPECIMEN / Unknown Non-Blood / Unknown 08/18/2024 11:25 AM CDT 08/18/2024 11:25 AM CDT Shaunna STODDARD URINE Final Resu lt [facility] [address] [place] [address], * URINE CULTURE [20043.2] (08/18/2024 11:25 AM CDT) CULTURE <10,000 CFU/mL multiple organisms 08/19/2024 1:51 PM CDT [facility] Urine URINE SPECIMEN / Unknown Non-Blood / Unknown 08/18/2024 11:25 AM CDT 08/18/2024 11:25 AM CDT Shaunna STODDARD MICROBIOLOGY Final Resu lt [facility] [address] [place] [address], * MEDICAL BILLER CODER THIN PREP PAP SCREEN IMAGED (08/18/2024 11:15 AM CDT) Case Report Gynecologic Cytology Report Case: [id number] Authorizing Provider: Shaunna Appiah PA Collected: 08/18/2024 1115 Ordering Location: [facility] Received: 08/18/2024 1440 Clinic First Screen: Sherlyn Ribeiro Specimen: MEDICAL BILLER CODER ThinPrep Vial Screening, Cervical 09/03/2024 11:07 AM CDT [facility] INTERPRETATION/ RESULT NEGATIVE FOR INTRAEPITHELIAL LESION OR MALIGNANCY (NIL) (none) 09/03/2024 11:07 AM CDT [facility] at 1107 CDT ORGANISM(S) Shift in rosalind suggestive of bacterial vaginosis 09/03/2024 11:07 AM CDT [facility] SPECIMEN ADEQUACY Satisfactory for evaluation Endocervical component present 09/03/2024 11:07 AM CDT [facility] HPV REQUEST HPV and PAP 09/03/2024 11:07 AM CDT [facility] Date of LMP unknown 09/03/2024 11:07 AM CDT [facility] Last Pap Date 05/19/21 09/03/2024 11:07 AM CDT [facility] Last Pap Result NIL 11:07 AM CDT [facility] Abnormal Pap or [place] Bx in last 5 years No 09/03/2024 11:07 AM CDT [facility] Menstrual Status Hormonally Suppressed 09/03/2024 11:07 AM CDT [facility] [place] Bx Done Today No 09/03/2024 11:07 AM CDT [facility] Additional Information None given 09/03/2024 11:07 AM CDT [facility] Comment: Cytology is screened at [facility] - [address], [place] [address] and [facility] - [address] [place] [address] and [facility] - [address] [place] [address] [facility] - [address], [place] [address] Automated Review Successful 09/03/2024 11:07 AM CDT [facility] Comment:Specimen processed s uccessfully by automated rn unit manager device, ThinPrep Imaging System, [employer] ANCILLARY TESTING MEDICAL BILLER CODER HPV Ordered, Please see separate report 09/03/2024 11:07 AM CDT [facility] Note The pap test is a [...] and malignant lesions. 09/03/2024 11:07 AM CDT [facility] Other (Cervical) Non-Blood / Unknown 08/18/2024 11:15 AM CDT 08/18/2024 2:40 PM CDT us Shaunna STODDARD PATHOLOGY/CYTOLOGY Final R esult [facility] [address] [place] [address], * HPV HIGH RISK (08/18/2024 11:15 AM CDT) TYPE 16 Negative Negative 08/21/2024 2:15 PM CDT [facility] TYPE 18 Negative Negative 08/21/2024 2:15 PM CDT [facility] OTHER HIGH RISK TYPES Negative Negative 08/21/2024 2:15 PM CDT [facility] Other (Cervical) Non-Blood / Unknown 08/18/2024 11:15 AM CDT 08/19/2024 10:29 AM CDT Narrative [facility] - 08/21/2024 2:15 PM CDT HPV types 16, 18, 31, 33, 35, 39, 45, 51, 52, 56, 58, 59, 66 and 68 DNA were undetectable or below the pre-set threshold. Methodology: Estelle Khurram 4800 HPV Test Shaunna STODDARD MICROBIOLOGY Final Resu lt Performing Organization Address [facility] Co de Phone Number [facility] [address] [place] [address], [place] * XR INJ FACET JOINT LUMBAR 2 LEVEL RIGHT (08/11/2024 12:00 AM CDT) Anatomical Region Laterality Modality LUMBAR SPINE Other us Flakito Oh MD FLUOROSCOPY Final Resu lt * ANTI HIV 1/2 (03/07/2023 7:14 PM FLYING TEACHER) HIV-1/HIV-2 SCREEN Non-Reacti ve Non-Reacti ve 03/08/2023 2:31 PM FLYING TEACHER [facility] Comment:HIV-1 p24 and HIV-1/ HIV-2 Ab Not Detected. Blood BLOOD SPECIMEN / Unknown Venipuncture / Unknown 03/07/2023 7:14 PM FLYING TEACHER 03/07/2023 7:14 PM FLYING TEACHER us Justyna Amaya CHEMICAL WEIGHER SEND OUTS Final Result Performing Organization Address [facility] Co de Phone Number [facility] [address] [place] [address], [place] * ANTI HCV (08/15/2017 4:57 PM CDT) HEPATITIS C ANTIBODY Non-React kenna Non-React kenna 08/16/2017 5:33 PM CDT [facility] Comment:Antibodies to HCV no t detected; does not exclude the possibility of exposure to HCV. Blood BLOOD SPECIMEN / Unknown Venipuncture / Unknown 08/15/2017 4:57 PM CDT 08/15/2017 7:28 PM CDT us Osmarjoanne Guzmangraciela Olsen DO SEND OUTS Final Res ult [facility] [address] [place] [address], from Last 3 Months or Most Recently Relevant to Health Maintenance Insurance [facility] [id number] [id number] [facility] [address] [id number] [facility] ALLELSA NADYA ORDONEZ [facility] [id number], [place] [id number] [facility]LELSA [facility] [id number] [place] [place] [id number] [place] [id number] Advance Directives * Full Code (Latest Code [...] 8:21 AM 01/02/2018 1:51 PM Care Teams Coiled Coil Inspector Relationship Specialty Start Date End Date Shaunna Appiah PA [address] [place] [address] PCP - General Physician Insurance Licensing Supervisor 01/23/24 Isaak Martinez MD Surgery - General 06/23/19 Pamela Mccullough RN [address] [place] [phone] Nurse Clinician 06/23/[address] [place] [phone] Fisher Mussel 06/23/19
== END 2024-10-16 09:43 | disposition home or self-care (01) ==
PROVIDERS: PCP Physician Assistant; Visit Provider Family Medicine
DX: M54.16 Radiculopathy, lumbar region (principal); M51.369 Other intervertebral disc degeneration, lumbar region without mention of lumbar back pain or lower extremity pain
CPT/HCPCS: 62323; J0702; Q9966